=== PATIENT | male | born 1980 | race Caucasian/White ===

== ENCOUNTER → 2016-07-03 | Outpatient (REF) | payer OTHER ==
[~2016-07-03] MED LIST: ACET500C; AMIT25TA2; KAPIDEX; MELOPOW; NEUR100C; NEUR300C; SKEL800T5
[2016-07-03 16:12] LABS: % NORMAL FORMS 4 % (>=4); IMMOTILITY 77 %; NON PROGRESSIVE MOTILITY (c) 6 %; PROGRESSIVE MOTILITY (a) 17 % (>=32); TOTAL MOTILITY 23 % (>=40)
[2016-07-03 16:13] LABS: SPERM# 274.6 M/Ejac (33-46); TOTAL FUNCTIONAL 4.8 M/Ejac.; TOTAL PROGRESSIVE SPERM 45.4 M/Ejac.
== END ==
LOC: M LAB REF 15:23
PROVIDERS: ATTEND Urology
DX: N46.9 Male infertility, unspecified (principal)

== ENCOUNTER → 2016-07-04 | Outpatient (REF) | payer OTHER ==
[2016-07-04 14:18] LABS: LUTEINIZING HORMONE 5.5 mIU/mL (1.5-9.3)
[2016-07-04 14:19] LABS: FOLLICLE STIMULATING HORMONE 7.6 mIU/mL (1.4-18.1)
== END ==
LOC: M LABDRAW1 13:31
PROVIDERS: ATTEND Emergency Medicine
DX: N46.9 Male infertility, unspecified (principal)

== ENCOUNTER → 2016-09-03 | Outpatient (CLI) | payer OTHER ==
[~2016-09-03] MED LIST changes: +DEXI60CA PO; +HYDR12.55 PO; +LEVOTAB10 PO; +LOPR1TAB6 PO; +RANITAB PO; +UROCTAB3 PO; +clomid PO
--- NOTE | 2016-09-03 23:12 | ECGEPIP ---
Stationary ECG Study [facility] Test Date: 2016-09-03 Pat Name: BEENA JEFF Department: Room: - Gender: M Assistant Finance Manager: IZABELLA : 1980 Requested By: Ronny Samayoa Order Number: [id number] Reading MD: Douglas Martínez Measurements Intervals [place] Rate: 75 P: 8 NM: 169 QRS: 0 QRSD: 84 T: 7 QT: 374 QTc: 418 Interpretive Statements SINUS RHYTHM Poor R-wave progression. No prior ECG available for comparison at the time of interpretation. Electronically Signed On 09-03-2016 23:11:54 EDT by Douglas Martínez
== END ==
LOC: M EKG 16:23
PROVIDERS: ATTEND Internal Medicine
DX: I10 Essential (primary) hypertension (principal); N28.9 Disorder of kidney and ureter, unspecified

== ENCOUNTER → 2016-09-10 | Day surgery (SDC) | payer OTHER ==
[~2016-09-10] VITALS: Ht 198.1 cm; Wt 124.7 kg
[~2016-09-10] MED LIST changes: +DOXY100C; +GLYCOPYRROLATE INJ 0.2 MG/ML 2 ML VIAL As Ordered ONE; +HYDROmorphone HCL 1 MG/ML SYRINGE (J1170) IV PRN; +LABETALOL HCL 100 MG/20 ML VIAL As Ordered ONE; +LIDOCAINE 2% INJ 100 MG/5 ML SDV (FOR ANES.) As Ordered ONE; +LIDOCAINE W/EPINEPHRINE 1% 20ML VIAL As Ordered ONE; +LR 1,000 ML IV SCH; +METHYLENE BLUE 0.5% (5MG/ML) 10 ML AMP (PROVAYBLUE)(Q9968 PER 1MG) As Ordered ONE; +METOCLOPRAMIDE INJ 10MG/2ML VIAL (J2765) As Ordered ONE; +MIDAZOLAM INJ 2 MG/2 ML VIAL (J2250) As Ordered ONE; +NEOSTIGMINE 1MG/ML 5 ML SYRINGE (J2710) As Ordered ONE; +NORC10TA2 PO; +ONDANSETRON 4MG/2ML VIAL (J2405) As Ordered ONE; +ONDANSETRON 4MG/2ML VIAL (J2405) IV PRN; +OXYMETAZOLINE NASAL SPRAY (AFRIN) As Ordered ONE; +PERCOCET 5MG/325MG TAB PO PRN; +PROPOFOL 200 MG/20 ML VIAL As Ordered ONE; +ROCURONIUM BROMIDE 50 MG/5 ML VIAL As Ordered ONE; +dexameTHASONE 4 MG/ML 1ML VIAL (J1100) As Ordered ONE; +fentaNYL 100 MCG/2 ML INJECTION (J3010) As Ordered ONE; +fentaNYL 250 MCG/5 ML INJECTION (J3010) As Ordered ONE
[2016-09-10] MEDS: LR 1,000 ML IV SCH ×2 (08:25→09:52)
[2016-09-10] MEDS: fentaNYL 100 MCG/2 ML INJECTION (J3010) IV PRN ×2 (10:35→10:40)
[2016-09-10 11:45] VITALS: BP 128/76
--- NOTE | 2016-09-11 09:33 | RO ---
DATE OF PROCEDURE: 09/10/2016 PREOPERATIVE DIAGNOSES: Nasal septal deviation and chronic rhinitis. POSTOPERATIVE DIAGNOSES: Nasal septal deviation and chronic rhinitis. PROCEDURE: Septoplasty, partial reduction inferior turbinates. SURGEON: Dr. Hernandez Menjivar DONOR FLOOR TECHNICIAN: ANESTHESIA: General endotracheal. INDICATIONS: This is a 36-year-old who presents with a long history of nasal obstruction with a history of nasal trauma. DESCRIPTION OF PROCEDURE: Satisfactory general endotracheal anesthesia administered. A pharyngeal pack was placed. The nose was prepared for surgery by placing cotton-soaked pledgets with Afrin solution to the nasal cavity bilaterally. 1% Xylocaine with 1:100,000 epinephrine was injected into the nasal septum and inferior turbinates. A [place] incision was made on the left side of the nose. A mucoperichondrial flap and envelope was created on the left side of the nasal septum and carried down to the junction of the bony and cartilaginous septum. This was then with an elevator, and an envelope was then created on the right side of the septum. A Meenakshi scissors was used to make a cut high in the perpendicular plate in the midportion of the vomer, and a central segment of the bony septum was resected. Next, with the round knife on the Evi elevator, a strip of cartilage was resected from the floor of the nose, mobilizing the quadrilateral cartilage and creating a swinging door. Then, a central segment of cartilaginous septum was resected, preserving a 1 cm dorsal and caudal strut. Double-action rongeur was used to take down deflected portions of the perpendicular plate, as well. Finally, the maxillary crest spur was taken down after elevating mucoperiosteum off both sides of it with a chisel. A segment of the resected cartilage was morselized and placed back into the septal envelope. The incision was closed using an interrupted #5-0 chromic suture. Then, a #4-0 plain suture was placed in a [id number] fashion through the two leaves of mucoperichondrium to appose them. Hypotrophic turbinates were noted. They were medially infractured. A #15 blade was used to make an incision on the anterior tips of the turbinates. A mucoperiosteal tunnel created and the microdebrider was inserted into the tunnel and the turbinate bone was weakened with the microdebrider and the submucosa of the turbinate was partially thinned using the microdebrider. The turbinates were then outfractured and suction cautery was used to coagulate the posterior and inferior tips of the turbinates. The pharyngeal pack was removed. The throat was suctioned. The patient was then awakened, extubated, and sent to recovery in satisfactory condition. He will be discharged home on Tylox for pain and doxycycline 100 mg twice a day. He will be seen back in the office in 3 days.
== END | disposition home or self-care (01) ==
LOC: M SDC 07:45
PROVIDERS: ATTEND Specialist
DX: J34.2 Deviated nasal septum (principal); J31.0 Chronic rhinitis; I12.9 Hypertensive chronic kidney disease with stage 1 through stage 4 chronic kidney disease, or unspecified chronic kidney disease; K21.9 Gastro-esophageal reflux disease without esophagitis; Q44.6 Cystic disease of liver; Q61.2 Polycystic kidney, adult type; M54.2 Cervicalgia; R29.898 Other symptoms and signs involving the musculoskeletal system; G43.909 Migraine, unspecified, not intractable, without status migrainosus; G47.26 Circadian rhythm sleep disorder, shift work type; R06.83 Snoring; J32.9 Chronic sinusitis, unspecified; N20.0 Calculus of kidney; Z87.891 Personal history of nicotine dependence; Z88.6 Allergy status to analgesic agent; Z79.899 Other long term (current) drug therapy; Z87.81 Personal history of (healed) traumatic fracture

== ENCOUNTER 2016-09-14 12:48 | Emergency (ER) | payer OTHER ==
[~2016-09-14] VITALS: Ht 198.1 cm; Wt 127.0 kg
[~2016-09-14 12:48] MED LIST changes: -DOXY100C; -GLYCOPYRROLATE INJ 0.2 MG/ML 2 ML VIAL As Ordered ONE; -HYDROmorphone HCL 1 MG/ML SYRINGE (J1170) IV PRN; -LABETALOL HCL 100 MG/20 ML VIAL As Ordered ONE; -LIDOCAINE 2% INJ 100 MG/5 ML SDV (FOR ANES.) As Ordered ONE; -LIDOCAINE W/EPINEPHRINE 1% 20ML VIAL As Ordered ONE; -LR 1,000 ML IV SCH; -METHYLENE BLUE 0.5% (5MG/ML) 10 ML AMP (PROVAYBLUE)(Q9968 PER 1MG) As Ordered ONE; -METOCLOPRAMIDE INJ 10MG/2ML VIAL (J2765) As Ordered ONE; -MIDAZOLAM INJ 2 MG/2 ML VIAL (J2250) As Ordered ONE; -NEOSTIGMINE 1MG/ML 5 ML SYRINGE (J2710) As Ordered ONE; -NORC10TA2 PO; -ONDANSETRON 4MG/2ML VIAL (J2405) As Ordered ONE; -ONDANSETRON 4MG/2ML VIAL (J2405) IV PRN; -OXYMETAZOLINE NASAL SPRAY (AFRIN) As Ordered ONE; -PERCOCET 5MG/325MG TAB PO PRN; -PROPOFOL 200 MG/20 ML VIAL As Ordered ONE; -ROCURONIUM BROMIDE 50 MG/5 ML VIAL As Ordered ONE; -dexameTHASONE 4 MG/ML 1ML VIAL (J1100) As Ordered ONE; -fentaNYL 100 MCG/2 ML INJECTION (J3010) As Ordered ONE; -fentaNYL 250 MCG/5 ML INJECTION (J3010) As Ordered ONE
[2016-09-14] MEDS ORDERED: DOXY100C (13:01)
[2016-09-14] MEDS ORDERED: ONDANSETRON 4 MG ORAL DISINTEGRATING TAB (S0181) PO ONE (13:45)
[2016-09-14] MEDS ORDERED: ANEXSIA, NORCO 7.5MG/325MG TABLET(HYDROCODONE/APAP) PO ONE (13:45)
[2016-09-14] MEDS ORDERED: NORC10TA2 PO (14:32)
[2016-09-14 14:39] VITALS: BP 142/94
== END 2016-09-14 14:49 | disposition home or self-care (01) ==
LOC: M ED 14:04
DX: G89.18 Other acute postprocedural pain (principal)

== ENCOUNTER → 2016-10-26 | Outpatient (REF) | payer OTHER ==
[~2016-10-26] MED LIST changes: +DOXY100C; +NORC10TA2 PO
[2016-10-26 09:51] LABS: % NORMAL FORMS 30 % (>=4); IMMOTILITY 6 %; NON PROGRESSIVE MOTILITY (c) 16 %; PROGRESSIVE MOTILITY (a) 78 % (>=32); SPERM# 131.3 M/Ejac (33-46); TOTAL MOTILITY 94 % (>=40)
[2016-10-26 09:52] LABS: TOTAL FUNCTIONAL 52.5 M/Ejac.
== END ==
LOC: M LAB REF 09:27
PROVIDERS: ATTEND Obstetrics & Gynecology Reproductive Endocrinology
DX: N97.9 Female infertility, unspecified (principal)

== ENCOUNTER → 2017-03-04 | Outpatient (REF) | payer OTHER ==
[~2017-03-04] MED LIST changes: -DEXI60CA PO; +DEXI60CA2 PO; -NORC10TA2 PO; +NORC10TA21 PO
[2017-03-04 19:47] LABS: % NORMAL FORMS 9 % (>=4); IMMOTILITY 51 %; NON PROGRESSIVE MOTILITY (c) 11 %; PROGRESSIVE MOTILITY (a) 38 % (>=32); SPERM# 82.9 M/Ejac (>=39); TOTAL MOTILITY 49 % (>=40)
[2017-03-04 19:48] LABS: TOTAL FUNCTIONAL 6.6 M/Ejac.; TOTAL PROGRESSIVE SPERM 31.7 M/Ejac.
== END ==
LOC: M LAB REF 16:01
PROVIDERS: ATTEND Obstetrics & Gynecology Reproductive Endocrinology
DX: N46.9 Male infertility, unspecified (principal)

== ENCOUNTER → 2017-09-05 | Outpatient (CLI) | payer OTHER | LOC: M RAD 13:23 | DX: N18.2 Chronic kidney disease, stage 2 (mild) (principal); Q61.2 Polycystic kidney, adult type; N20.0 Calculus of kidney ==

== ENCOUNTER → 2017-12-23 | Outpatient (REF) | payer OTHER ==
[2017-12-23 10:02] LABS: SEMEN APPEARANCE OPAQUE (OPAQUE); SEMEN VISCOSITY LIQUID (LIQUID); SEMEN VOLUME 2.6 ml (4.0-5.0)
[2017-12-23 10:03] LABS: % NORMAL FORMS 20 % (>=4); IMMOTILITY 23 %; NON PROGRESSIVE MOTILITY (c) 8 %; PROGRESSIVE MOTILITY (a) 69 % (>=32); SPERM ABNORMAL FORMS WBC'S NOTED; SPERM CONCENTRATION 102.1 M/ml (>=15.0); SPERM# 265.5 M/Ejac (>=39); TOTAL FUNCTIONAL 71.9 M/Ejac.; TOTAL MOTILITY 77 % (>=40); TOTAL PROGRESSIVE SPERM 183.9 M/Ejac.; WBC CONCENTRATION >1 M/ml (<=1 M/ml)
== END ==
LOC: M LAB REF 09:49
DX: N46.9 Male infertility, unspecified (principal)

== ENCOUNTER → 2018-01-07 | Outpatient (CLI) | payer OTHER | LOC: M PAIN 10:15 | DX: M25.562 Pain in left knee (principal); G89.29 Other chronic pain; M79.2 Neuralgia and neuritis, unspecified; I10 Essential (primary) hypertension; K21.9 Gastro-esophageal reflux disease without esophagitis; Z79.899 Other long term (current) drug therapy; Z88.6 Allergy status to analgesic agent; Z88.8 Allergy status to other drugs, medicaments and biological substances; Z87.448 Personal history of other diseases of urinary system; Z87.891 Personal history of nicotine dependence | CPT/HCPCS: G0463 ==

== ENCOUNTER → 2018-01-16 | Outpatient (CLI) | payer OTHER | LOC: M RAD 09:22 | DX: M17.11 Unilateral primary osteoarthritis, right knee (principal); M25.561 Pain in right knee | CPT/HCPCS: 78315 ==

== ENCOUNTER → 2018-01-20 | Outpatient (CLI) | payer OTHER | LOC: M PAIN 15:45 | DX: G57.31 Lesion of lateral popliteal nerve, right lower limb (principal); K21.9 Gastro-esophageal reflux disease without esophagitis; I10 Essential (primary) hypertension; Z87.442 Personal history of urinary calculi; Z87.891 Personal history of nicotine dependence; Q61.3 Polycystic kidney, unspecified; Z88.6 Allergy status to analgesic agent; Z88.8 Allergy status to other drugs, medicaments and biological substances; Z79.899 Other long term (current) drug therapy | CPT/HCPCS: G0463 ==

== ENCOUNTER 2018-01-30 16:20 | Emergency (ER) | payer OTHER | END 2018-01-30 17:02 | disposition home or self-care (01) | LOC: M ED 16:20 | DX: R51 Headache (principal); T42.6X5A Adverse effect of other antiepileptic and sedative-hypnotic drugs, initial encounter; I10 Essential (primary) hypertension; G90.50 Complex regional pain syndrome I, unspecified; Q61.3 Polycystic kidney, unspecified; Z98.890 Other specified postprocedural states; Z88.8 Allergy status to other drugs, medicaments and biological substances; Z79.899 Other long term (current) drug therapy | CPT/HCPCS: 99282 ==

== ENCOUNTER 2018-02-02 18:47 | Inpatient (IN) | payer OTHER ==
[2018-02-02] MEDS: MORPHINE 4 MG/ML 1ML VIAL/SYRINGE (J2270) IV (19:45)
[2018-02-02 21:01] LABS: ABG HCO3 24.8 MEQ/L (22.0-26.0); ABG O2 SATURATION 94.8 % (95.0-99.0); ABG PARTIAL PRESSURE O2 71.8 mmHg (75.0-100.0); ABG STANDARD HCO3 25.3 MEQ/L (22.0-26.0); ABG TOTAL CO2 25.9 MEQ/L (22.0-29.0); ABG pH (ARTERIAL) 7.444 UNITS (7.350-7.450)
[2018-02-02 21:03] LABS: BASO # 0.1 10^3/uL (0.0-0.2); BASO % 0.6 % (0.0-1.0); EOS # 0.2 10^3/uL (0.0-0.50); EOS % 2.8 % (0.0-3.0); HEMATOCRIT 41.5 % (42.0-52.0); HEMOGLOBIN 14.3 g/dl (13.5-17.5); IMMATURE GRANULOCYTE % 0.4 % (0-3.0); LYMPH # 1.6 10^3/uL (1.5-4.5); LYMPH % 20.6 % (24.0-44.0); MEAN CORPUSCULAR HEMOGLOBIN 30.5 pg (27.0-33.0); MEAN CORPUSCULAR HGB CONC 34.5 g/dl (32.0-36.5); MEAN CORPUSCULAR VOLUME 88.5 fl (80.0-96.0); MONO # 0.6 10^3/uL (0.0-0.8); MONO % 7.2 % (0.0-5.0); NEUTROPHILS # 5.3 10^3/uL (1.8-7.7); NEUTROPHILS % 68.4 % (36.0-66.0); PLATELET COUNT, AUTOMATED 163 10^3/uL (150-450); RED BLOOD COUNT 4.69 10^6/uL (4.30-6.10); RED CELL DISTRIBUTION WIDTH 12.5 % (11.5-14.5); WHITE BLOOD COUNT 7.8 10^3/uL (4.0-10.0)
[2018-02-02 21:25] LABS: ANION GAP 9 MEQ/L (8-16); BLOOD UREA NITROGEN 14 MG/DL (7-18); CALCIUM LEVEL 8.7 MG/DL (8.5-10.1); CARBON DIOXIDE LEVEL 27 MEQ/L (21-32); CHLORIDE LEVEL 106 MEQ/L (98-107); CK-MB VALUE MASS < 1.0 NG/ML (<3.6); CPK CREATINE PHOSPHOKINASE 38 U/L (39-308); CREATININE FOR GFR 1.08 MG/DL (0.70-1.30); GLOMERULAR FILTRATION RATE > 60.0 (>60); GLUCOSE, FASTING 122 MG/DL (70-100); MB/CK RELATIVE INDEX 2.63 (< OR =4); POTASSIUM SERUM 4.3 MEQ/L (3.5-5.1); SODIUM LEVEL 142 MEQ/L (136-145); TROPONIN I < 0.02 NG/ML (< 0.10)
[2018-02-02 21:36] LABS: INR 0.95; PROTHROMBIN TIME 12.8 SECONDS (12.1-14.4)
[2018-02-02 21:37] LABS: PARTIAL THROMBOPLASTIN TIME 36.1 SECONDS (25.4-37.6)
[2018-02-02 21:58] LABS: D-DIMER QUANT 3595.4 ng/ml (<500)
[2018-02-02] MEDS: NS 1,000 ML IV (22:00)
[2018-02-02] MEDS ORDERED: ISOVUE-370 76% 100ML VIAL (Q9967) As Ordered (22:27)
[2018-02-02] MEDS: HEPARIN SOD (PORCINE) 5000 UNITS/ML VIAL IV (23:03)
[2018-02-02] MEDS: HEPARIN DRIP 25,000 UNITS in APPROPRIATE DILUENT 1 EA IV (23:04)
[2018-02-03] MEDS: HEPARIN DRIP 25,000 UNITS in APPROPRIATE DILUENT 1 EA IV ×2 (00:12→16:07)
[2018-02-03] MEDS: MAGNESIUM CHLORIDE 64 MG TABCR (SLO MAG) PO ×2 (01:14→21:15)
[2018-02-03] MEDS: METOPROLOL TART 50 MG TAB PO ×3 (01:18→21:16)
[2018-02-03] MEDS: LOSARTAN 50 MG TAB PO ×2 (01:18→21:15)
[2018-02-03] MEDS: aMILoride 5 MG TAB PO ×2 (01:18→21:15)
[2018-02-03 01:20] LABS: PARTIAL THROMBOPLASTIN TIME 88.6 SECONDS (25.4-37.6)
[2018-02-03] MEDS: MORPHINE 4 MG/ML 1ML VIAL/SYRINGE (J2270) IV (01:26)
[2018-02-03 05:42] LABS: HEMATOCRIT 38.5 % (42.0-52.0); HEMOGLOBIN 13.4 g/dl (13.5-17.5); MEAN CORPUSCULAR HEMOGLOBIN 30.4 pg (27.0-33.0); MEAN CORPUSCULAR HGB CONC 34.8 g/dl (32.0-36.5); MEAN CORPUSCULAR VOLUME 87.3 fl (80.0-96.0); PLATELET COUNT, AUTOMATED 172 10^3/uL (150-450); RED BLOOD COUNT 4.41 10^6/uL (4.30-6.10); RED CELL DISTRIBUTION WIDTH 12.5 % (11.5-14.5); WHITE BLOOD COUNT 8.3 10^3/uL (4.0-10.0)
[2018-02-03 06:16] LABS: ANION GAP 8 MEQ/L (8-16); BLOOD UREA NITROGEN 14 MG/DL (7-18); CALCIUM LEVEL 8.6 MG/DL (8.5-10.1); CARBON DIOXIDE LEVEL 25 MEQ/L (21-32); CHLORIDE LEVEL 105 MEQ/L (98-107); CREATININE FOR GFR 1.05 MG/DL (0.70-1.30); GLOMERULAR FILTRATION RATE > 60.0 (>60); GLUCOSE, FASTING 92 MG/DL (70-100); POTASSIUM SERUM 3.9 MEQ/L (3.5-5.1); SODIUM LEVEL 138 MEQ/L (136-145); TROPONIN I < 0.02 NG/ML (< 0.10)
[2018-02-03 06:57] LABS: PARTIAL THROMBOPLASTIN TIME 43.4 SECONDS (25.4-37.6)
[2018-02-03 07:25] LABS: INR 1.01; PROTHROMBIN TIME 13.4 SECONDS (12.1-14.4)
[2018-02-03] MEDS: PANTOPRAZOLE 40MG TAB (PROTONIX) PO (08:39)
[2018-02-03] MEDS: POTASSIUM CITRATE 1080 MG (10MEQ) TAB PO ×3 (08:39→21:16)
[2018-02-03] MEDS ORDERED: POTASSIUM CHLORIDE 10 MEQ SR TABLET PO (09:00)
[2018-02-03] MEDS: ACETAMINOPHEN TAB 650MG DOSE (2X325MG) PO (10:54)
[2018-02-03] MEDS ORDERED: MOM 30ML SUSPENSION UDC PO (11:45)
[2018-02-03] MEDS: PERCOCET 5MG/325MG TAB PO ×3 (12:20→21:16)
[2018-02-03 12:32] LABS: PARTIAL THROMBOPLASTIN TIME 55.1 SECONDS (25.4-37.6)
[2018-02-03 13:34] LABS: TROPONIN I < 0.02 NG/ML (< 0.10)
[2018-02-03] MEDS: HEPARIN SOD (PORCINE) 5000 UNITS/ML VIAL IV (13:57)
[2018-02-03] MEDS: WARFARIN SOD 5 MG TAB PO (17:29)
[2018-02-03 20:15] LABS: PARTIAL THROMBOPLASTIN TIME 71.9 SECONDS (25.4-37.6)
[2018-02-03] MEDS: SENOKOT S TAB PO (21:15)
[2018-02-03] MEDS: raNITIdine SYRUP 150 MG/10 ML UDC PO (21:15)
[2018-02-03] MEDS: LEVOCETIRIZINE HYDROCHLORIDE 5 MG PO (21:44)
[2018-02-04] MEDS: PERCOCET 5MG/325MG TAB PO ×4 (01:19→19:08)
[2018-02-04 02:22] LABS: PARTIAL THROMBOPLASTIN TIME 79.4 SECONDS (25.4-37.6)
[2018-02-04 05:59] LABS: HEMATOCRIT 39.6 % (42.0-52.0); MEAN CORPUSCULAR HEMOGLOBIN 30.6 pg (27.0-33.0); MEAN CORPUSCULAR HGB CONC 35.4 g/dl (32.0-36.5); MEAN CORPUSCULAR VOLUME 86.5 fl (80.0-96.0); PLATELET COUNT, AUTOMATED 164 10^3/uL (150-450); RED BLOOD COUNT 4.58 10^6/uL (4.30-6.10); RED CELL DISTRIBUTION WIDTH 12.4 % (11.5-14.5); WHITE BLOOD COUNT 6.6 10^3/uL (4.0-10.0)
[2018-02-04 06:11] LABS: INR 1.07
[2018-02-04] MEDS: HEPARIN DRIP 25,000 UNITS in APPROPRIATE DILUENT 1 EA IV ×2 (06:12→17:28)
[2018-02-04 06:17] LABS: ANION GAP 9 MEQ/L (8-16); BLOOD UREA NITROGEN 16 MG/DL (7-18); CALCIUM LEVEL 8.6 MG/DL (8.5-10.1); CARBON DIOXIDE LEVEL 25 MEQ/L (21-32); CHLORIDE LEVEL 105 MEQ/L (98-107); CREATININE FOR GFR 1.04 MG/DL (0.70-1.30); GLOMERULAR FILTRATION RATE > 60.0 (>60); GLUCOSE, FASTING 115 MG/DL (70-100); POTASSIUM SERUM 4.2 MEQ/L (3.5-5.1); SODIUM LEVEL 139 MEQ/L (136-145)
[2018-02-04] MEDS: METOPROLOL TART 50 MG TAB PO ×2 (08:11→21:23)
[2018-02-04] MEDS: POTASSIUM CITRATE 1080 MG (10MEQ) TAB PO ×3 (08:11→21:22)
[2018-02-04] MEDS: raNITIdine SYRUP 150 MG/10 ML UDC PO ×2 (08:11→21:23)
[2018-02-04] MEDS ORDERED: NALOXONE INJ 0.4 MG/1 ML VIAL (J2310) IV (12:00)
[2018-02-04] MEDS: PANTOPRAZOLE 40MG TAB (PROTONIX) PO (17:28)
[2018-02-04] MEDS: WARFARIN SOD 5 MG TAB PO (17:28)
[2018-02-04] MEDS: MORPHINE 4 MG/ML 1ML VIAL/SYRINGE (J2270) IV ×2 (17:29→21:25)
[2018-02-04 20:02] LABS: CK-MB VALUE MASS < 1.0 NG/ML (<3.6); CPK CREATINE PHOSPHOKINASE 46 U/L (39-308); MB/CK RELATIVE INDEX 2.17 (< OR =4); TROPONIN I < 0.02 NG/ML (< 0.10)
[2018-02-04] MEDS: LEVOCETIRIZINE HYDROCHLORIDE 5 MG PO (21:00)
[2018-02-04] MEDS: aMILoride 5 MG TAB PO (21:22)
[2018-02-04] MEDS: LOSARTAN 50 MG TAB PO (21:22)
[2018-02-04] MEDS: MAGNESIUM CHLORIDE 64 MG TABCR (SLO MAG) PO (21:24)
[2018-02-05 06:25] LABS: HEMATOCRIT 40.4 % (42.0-52.0); HEMOGLOBIN 14.3 g/dl (13.5-17.5); MEAN CORPUSCULAR HEMOGLOBIN 30.4 pg (27.0-33.0); MEAN CORPUSCULAR HGB CONC 35.4 g/dl (32.0-36.5); MEAN CORPUSCULAR VOLUME 85.8 fl (80.0-96.0); PLATELET COUNT, AUTOMATED 163 10^3/uL (150-450); RED BLOOD COUNT 4.71 10^6/uL (4.30-6.10); RED CELL DISTRIBUTION WIDTH 12.4 % (11.5-14.5); WHITE BLOOD COUNT 6.4 10^3/uL (4.0-10.0)
[2018-02-05 06:26] LABS: ANION GAP 9 MEQ/L (8-16); BLOOD UREA NITROGEN 17 MG/DL (7-18); CALCIUM LEVEL 8.6 MG/DL (8.5-10.1); CARBON DIOXIDE LEVEL 26 MEQ/L (21-32); CHLORIDE LEVEL 106 MEQ/L (98-107); CREATININE FOR GFR 1.07 MG/DL (0.70-1.30); GLOMERULAR FILTRATION RATE > 60.0 (>60); GLUCOSE, FASTING 108 MG/DL (70-100); POTASSIUM SERUM 4.3 MEQ/L (3.5-5.1); SODIUM LEVEL 141 MEQ/L (136-145)
[2018-02-05 06:38] LABS: INR 1.25; PROTHROMBIN TIME 15.9 SECONDS (12.1-14.4)
[2018-02-05 06:40] LABS: PARTIAL THROMBOPLASTIN TIME 94.9 SECONDS (25.4-37.6)
[2018-02-05] MEDS: METOPROLOL TART 50 MG TAB PO ×2 (08:29→21:17)
[2018-02-05] MEDS: POTASSIUM CITRATE 1080 MG (10MEQ) TAB PO ×3 (08:29→21:20)
[2018-02-05] MEDS: raNITIdine SYRUP 150 MG/10 ML UDC PO ×2 (08:30→21:21)
[2018-02-05] MEDS: HEPARIN DRIP 25,000 UNITS in APPROPRIATE DILUENT 1 EA IV ×2 (08:32→23:58)
[2018-02-05] MEDS: PERCOCET 5MG/325MG TAB PO ×3 (09:51→21:21)
[2018-02-05] MEDS: MORPHINE 4 MG/ML 1ML VIAL/SYRINGE (J2270) IV ×3 (11:40→23:06)
[2018-02-05 13:46] LABS: CK-MB VALUE MASS < 1.0 NG/ML (<3.6); CPK CREATINE PHOSPHOKINASE 37 U/L (39-308); TROPONIN I < 0.02 NG/ML (< 0.10)
[2018-02-05] MEDS ORDERED: ISOVUE-370 76% 100ML VIAL (Q9967) As Ordered (13:53)
[2018-02-05] MEDS: GI COCKTAIL 50ML BTL(HYOSCYAMINE/MAALOX/LIDOCAINE VISCOUS)(1:3:1) PO (14:15)
[2018-02-05] MEDS: WARFARIN SOD 5 MG TAB PO (16:10)
[2018-02-05] MEDS: PANTOPRAZOLE 40MG TAB (PROTONIX) PO ×2 (16:11→21:19)
[2018-02-05] MEDS: SUCRALFATE SUSP 1GM/10ML UD PO ×2 (18:02→21:16)
[2018-02-05] MEDS ORDERED: GI COCKTAIL 50ML BTL(HYOSCYAMINE/MAALOX/LIDOCAINE VISCOUS)(1:3:1) PO (20:00)
[2018-02-05 20:59] LABS: CK-MB VALUE MASS < 1.0 NG/ML (<3.6); CPK CREATINE PHOSPHOKINASE 47 U/L (39-308); MB/CK RELATIVE INDEX 2.12 (< OR =4); TROPONIN I < 0.02 NG/ML (< 0.10)
[2018-02-05 21:15] LABS: INR 1.51; PROTHROMBIN TIME 18.4 SECONDS (12.1-14.4)
[2018-02-05 21:16] LABS: PARTIAL THROMBOPLASTIN TIME 79.3 SECONDS (25.4-37.6)
[2018-02-05] MEDS: LOSARTAN 50 MG TAB PO (21:17)
[2018-02-05] MEDS: aMILoride 5 MG TAB PO (21:18)
[2018-02-05] MEDS: LEVOCETIRIZINE HYDROCHLORIDE 5 MG PO (21:18)
[2018-02-05] MEDS: MAGNESIUM CHLORIDE 64 MG TABCR (SLO MAG) PO (21:19)
[2018-02-06] MEDS: NS 1,000 ML IV (00:10)
[2018-02-06 02:14] LABS: INR 1.91; PROTHROMBIN TIME 22.2 SECONDS (12.1-14.4)
[2018-02-06 02:16] LABS: PARTIAL THROMBOPLASTIN TIME 96.8 SECONDS (25.4-37.6)
[2018-02-06 08:29] LABS: HEMATOCRIT 42.4 % (42.0-52.0); HEMOGLOBIN 14.8 g/dl (13.5-17.5); MEAN CORPUSCULAR HEMOGLOBIN 30.5 pg (27.0-33.0); MEAN CORPUSCULAR HGB CONC 34.9 g/dl (32.0-36.5); MEAN CORPUSCULAR VOLUME 87.4 fl (80.0-96.0); PLATELET COUNT, AUTOMATED 166 10^3/uL (150-450); RED BLOOD COUNT 4.85 10^6/uL (4.30-6.10); RED CELL DISTRIBUTION WIDTH 12.3 % (11.5-14.5); WHITE BLOOD COUNT 6.1 10^3/uL (4.0-10.0)
[2018-02-06 08:41] LABS: INR 2.26; PROTHROMBIN TIME 25.4 SECONDS (12.1-14.4)
[2018-02-06 08:45] LABS: PARTIAL THROMBOPLASTIN TIME 133.9 SECONDS (25.4-37.6)
[2018-02-06 08:55] LABS: ANION GAP 9 MEQ/L (8-16); BLOOD UREA NITROGEN 16 MG/DL (7-18); CALCIUM LEVEL 8.7 MG/DL (8.5-10.1); CARBON DIOXIDE LEVEL 26 MEQ/L (21-32); CHLORIDE LEVEL 105 MEQ/L (98-107); CK-MB VALUE MASS < 1.0 NG/ML (<3.6); CPK CREATINE PHOSPHOKINASE 42 U/L (39-308); CREATININE FOR GFR 1.16 MG/DL (0.70-1.30); GLOMERULAR FILTRATION RATE > 60.0 (>60); GLUCOSE, FASTING 110 MG/DL (70-100); MB/CK RELATIVE INDEX 2.38 (< OR =4); POTASSIUM SERUM 4.4 MEQ/L (3.5-5.1); SODIUM LEVEL 140 MEQ/L (136-145); TROPONIN I < 0.02 NG/ML (< 0.10)
[2018-02-06] MEDS: raNITIdine SYRUP 150 MG/10 ML UDC PO ×2 (08:56→20:34)
[2018-02-06] MEDS: SUCRALFATE SUSP 1GM/10ML UD PO ×4 (08:56→20:31)
[2018-02-06] MEDS: POTASSIUM CITRATE 1080 MG (10MEQ) TAB PO ×3 (08:57→20:34)
[2018-02-06] MEDS: METOPROLOL TART 50 MG TAB PO ×2 (08:57→20:32)
[2018-02-06] MEDS: PERCOCET 5MG/325MG TAB PO ×3 (08:57→20:37)
[2018-02-06] MEDS: PANTOPRAZOLE 40MG TAB (PROTONIX) PO ×2 (08:57→20:33)
[2018-02-06] MEDS: MORPHINE 4 MG/ML 1ML VIAL/SYRINGE (J2270) IV ×3 (10:49→22:36)
[2018-02-06 14:46] LABS: PROTHROMBIN TIME 26.6 SECONDS (12.1-14.4)
[2018-02-06 14:47] LABS: PARTIAL THROMBOPLASTIN TIME 80.8 SECONDS (25.4-37.6)
[2018-02-06] MEDS: WARFARIN SOD 5 MG TAB PO (16:23)
[2018-02-06] MEDS: HEPARIN DRIP 25,000 UNITS in APPROPRIATE DILUENT 1 EA IV (16:31)
[2018-02-06] MEDS: LOSARTAN 50 MG TAB PO (20:32)
[2018-02-06] MEDS: LEVOCETIRIZINE HYDROCHLORIDE 5 MG PO (20:33)
[2018-02-06] MEDS: aMILoride 5 MG TAB PO (20:33)
[2018-02-06] MEDS: MAGNESIUM CHLORIDE 64 MG TABCR (SLO MAG) PO (20:34)
[2018-02-06 20:48] LABS: INR 2.21; PROTHROMBIN TIME 24.9 SECONDS (12.1-14.4)
[2018-02-06 20:49] LABS: PARTIAL THROMBOPLASTIN TIME 69.6 SECONDS (25.4-37.6)
[2018-02-07 05:12] LABS: HEMATOCRIT 41.4 % (42.0-52.0); HEMOGLOBIN 14.6 g/dl (13.5-17.5); MEAN CORPUSCULAR HEMOGLOBIN 30.8 pg (27.0-33.0); MEAN CORPUSCULAR HGB CONC 35.3 g/dl (32.0-36.5); MEAN CORPUSCULAR VOLUME 87.3 fl (80.0-96.0); PLATELET COUNT, AUTOMATED 171 10^3/uL (150-450); RED BLOOD COUNT 4.74 10^6/uL (4.30-6.10); RED CELL DISTRIBUTION WIDTH 12.3 % (11.5-14.5); WHITE BLOOD COUNT 6.2 10^3/uL (4.0-10.0)
[2018-02-07] MEDS: MORPHINE 4 MG/ML 1ML VIAL/SYRINGE (J2270) IV ×3 (05:14→20:56)
[2018-02-07 05:25] LABS: INR 2.68; PROTHROMBIN TIME 29.1 SECONDS (12.1-14.4)
[2018-02-07 05:29] LABS: ANION GAP 8 MEQ/L (8-16); BLOOD UREA NITROGEN 16 MG/DL (7-18); CALCIUM LEVEL 8.9 MG/DL (8.5-10.1); CARBON DIOXIDE LEVEL 25 MEQ/L (21-32); CHLORIDE LEVEL 106 MEQ/L (98-107); GLOMERULAR FILTRATION RATE > 60.0 (>60); GLUCOSE, FASTING 108 MG/DL (70-100); POTASSIUM SERUM 4.5 MEQ/L (3.5-5.1); SODIUM LEVEL 139 MEQ/L (136-145)
[2018-02-07] MEDS: SUCRALFATE SUSP 1GM/10ML UD PO ×4 (08:31→20:59)
[2018-02-07] MEDS: PERCOCET 5MG/325MG TAB PO ×4 (08:31→23:14)
[2018-02-07] MEDS: PANTOPRAZOLE 40MG TAB (PROTONIX) PO ×2 (08:31→20:58)
[2018-02-07] MEDS: raNITIdine SYRUP 150 MG/10 ML UDC PO ×2 (08:31→20:59)
[2018-02-07] MEDS: POTASSIUM CITRATE 1080 MG (10MEQ) TAB PO ×3 (08:32→20:57)
[2018-02-07] MEDS: METOPROLOL TART 50 MG TAB PO ×2 (08:32→20:58)
[2018-02-07] MEDS: HEPARIN DRIP 25,000 UNITS in APPROPRIATE DILUENT 1 EA IV ×2 (11:13→15:37)
[2018-02-07 11:37] LABS: INR 2.74; PROTHROMBIN TIME 29.6 SECONDS (12.1-14.4)
[2018-02-07] MEDS: BUPIVACAINE HCL 0.5% 30 ML VIAL As Ordered (14:20)
[2018-02-07] MEDS: HEPARIN SOD (PORCINE) 5000 UNITS/ML VIAL As Ordered (14:20)
[2018-02-07] MEDS: LIDOCAINE 1% SDV INJ 30 ML VIAL As Ordered (14:20)
[2018-02-07 15:28] LABS: INR 2.85; PROTHROMBIN TIME 30.6 SECONDS (12.1-14.4)
[2018-02-07] MEDS: ALTEPLASE RECOMBINANT 25 MG in NS 225 ML IV (15:33)
[2018-02-07] MEDS: ALTEPLASE RECOMBINANT 10 MG in APPROPRIATE DILUENT 1 EA IV (15:34)
[2018-02-07 16:50] LABS: FIBRINOGEN 326 MG/DL (221-452)
[2018-02-07] MEDS ORDERED: WARFARIN SOD 5 MG TAB PO (17:00)
[2018-02-07] MEDS: LOSARTAN 50 MG TAB PO (20:57)
[2018-02-07] MEDS: aMILoride 5 MG TAB PO (20:57)
[2018-02-07] MEDS: MAGNESIUM CHLORIDE 64 MG TABCR (SLO MAG) PO (20:58)
[2018-02-07] MEDS: LEVOCETIRIZINE HYDROCHLORIDE 5 MG PO (20:59)
[2018-02-07 22:23] LABS: HEMATOCRIT 42.9 % (42.0-52.0)
[2018-02-07 22:40] LABS: FIBRINOGEN 300 MG/DL (221-452)
[2018-02-07 22:58] LABS: PARTIAL THROMBOPLASTIN TIME 62.8 SECONDS (25.4-37.6)
[2018-02-08] MEDS: PERCOCET 5MG/325MG TAB PO ×3 (04:03→17:37)
[2018-02-08 04:35] LABS: HEMATOCRIT 41.2 % (42.0-52.0); HEMOGLOBIN 14.6 g/dl (13.5-17.5); MEAN CORPUSCULAR HEMOGLOBIN 30.6 pg (27.0-33.0); MEAN CORPUSCULAR HGB CONC 35.4 g/dl (32.0-36.5); MEAN CORPUSCULAR VOLUME 86.4 fl (80.0-96.0); PLATELET COUNT, AUTOMATED 165 10^3/uL (150-450); RED BLOOD COUNT 4.77 10^6/uL (4.30-6.10); RED CELL DISTRIBUTION WIDTH 12.5 % (11.5-14.5)
[2018-02-08 04:46] LABS: INR 2.94; PROTHROMBIN TIME 31.3 SECONDS (12.1-14.4)
[2018-02-08 04:47] LABS: FIBRINOGEN 299 MG/DL (221-452)
[2018-02-08 04:48] LABS: ANION GAP 10 MEQ/L (8-16); BLOOD UREA NITROGEN 19 MG/DL (7-18); CALCIUM LEVEL 8.7 MG/DL (8.5-10.1); CARBON DIOXIDE LEVEL 26 MEQ/L (21-32); CHLORIDE LEVEL 104 MEQ/L (98-107); CREATININE FOR GFR 1.11 MG/DL (0.70-1.30); GLOMERULAR FILTRATION RATE > 60.0 (>60); GLUCOSE, FASTING 112 MG/DL (70-100); PARTIAL THROMBOPLASTIN TIME 79.5 SECONDS (25.4-37.6); POTASSIUM SERUM 4.6 MEQ/L (3.5-5.1); SODIUM LEVEL 140 MEQ/L (136-145)
[2018-02-08] MEDS: MORPHINE 4 MG/ML 1ML VIAL/SYRINGE (J2270) IV ×3 (08:01→22:05)
[2018-02-08] MEDS: SUCRALFATE SUSP 1GM/10ML UD PO ×4 (08:02→20:25)
[2018-02-08] MEDS: raNITIdine SYRUP 150 MG/10 ML UDC PO ×2 (09:00→20:26)
[2018-02-08] MEDS: HEPARIN DRIP 25,000 UNITS in APPROPRIATE DILUENT 1 EA IV (09:21)
[2018-02-08] MEDS: PANTOPRAZOLE 40MG TAB (PROTONIX) PO ×2 (09:23→20:25)
[2018-02-08] MEDS: METOPROLOL TART 50 MG TAB PO ×2 (09:23→20:25)
[2018-02-08] MEDS: POTASSIUM CITRATE 1080 MG (10MEQ) TAB PO ×3 (09:23→20:24)
[2018-02-08 10:20] LABS: HEMATOCRIT 43.7 % (42.0-52.0); HEMOGLOBIN 15.2 g/dl (13.5-17.5)
[2018-02-08 10:50] LABS: PARTIAL THROMBOPLASTIN TIME 82.3 SECONDS (25.4-37.6)
[2018-02-08 10:54] LABS: FIBRINOGEN 317 MG/DL (221-452)
[2018-02-08] MEDS: PHYTONADIONE 5 MG TAB PO (11:44)
[2018-02-08] MEDS: ALTEPLASE RECOMBINANT 25 MG in NS 225 ML IV (15:29)
[2018-02-08 15:50] LABS: HEMATOCRIT 42.9 % (42.0-52.0); HEMOGLOBIN 15.1 g/dl (13.5-17.5)
[2018-02-08 16:01] LABS: FIBRINOGEN 334 MG/DL (221-452)
[2018-02-08 17:00] LABS: INR 2.23; PROTHROMBIN TIME 25.1 SECONDS (12.1-14.4)
[2018-02-08] MEDS: aMILoride 5 MG TAB PO (20:24)
[2018-02-08] MEDS: LOSARTAN 50 MG TAB PO (20:25)
[2018-02-08] MEDS: LEVOCETIRIZINE HYDROCHLORIDE 5 MG PO (20:26)
[2018-02-08] MEDS: MAGNESIUM CHLORIDE 64 MG TABCR (SLO MAG) PO (20:26)
[2018-02-08 22:25] LABS: HEMATOCRIT 41.9 % (42.0-52.0); HEMOGLOBIN 14.8 g/dl (13.5-17.5)
[2018-02-08 22:37] LABS: FIBRINOGEN 332 MG/DL (221-452)
[2018-02-08 22:38] LABS: PARTIAL THROMBOPLASTIN TIME 60.1 SECONDS (25.4-37.6)
[2018-02-09 04:13] LABS: HEMATOCRIT 39.4 % (42.0-52.0); MEAN CORPUSCULAR HEMOGLOBIN 30.8 pg (27.0-33.0); MEAN CORPUSCULAR HGB CONC 35.5 g/dl (32.0-36.5); MEAN CORPUSCULAR VOLUME 86.6 fl (80.0-96.0); PLATELET COUNT, AUTOMATED 148 10^3/uL (150-450); RED BLOOD COUNT 4.55 10^6/uL (4.30-6.10); RED CELL DISTRIBUTION WIDTH 12.4 % (11.5-14.5); WHITE BLOOD COUNT 6.7 10^3/uL (4.0-10.0)
[2018-02-09 04:31] LABS: ANION GAP 7 MEQ/L (8-16); BLOOD UREA NITROGEN 18 MG/DL (7-18); CALCIUM LEVEL 8.4 MG/DL (8.5-10.1); CARBON DIOXIDE LEVEL 28 MEQ/L (21-32); CHLORIDE LEVEL 104 MEQ/L (98-107); CREATININE FOR GFR 1.21 MG/DL (0.70-1.30); GLOMERULAR FILTRATION RATE > 60.0 (>60); GLUCOSE, FASTING 139 MG/DL (70-100); POTASSIUM SERUM 4.5 MEQ/L (3.5-5.1); SODIUM LEVEL 139 MEQ/L (136-145)
[2018-02-09 04:35] LABS: FIBRINOGEN 313 MG/DL (221-452); PARTIAL THROMBOPLASTIN TIME 60.6 SECONDS (25.4-37.6)
[2018-02-09 08:33] LABS: PROTHROMBIN TIME 20.3 SECONDS (12.1-14.4)
[2018-02-09] MEDS: raNITIdine SYRUP 150 MG/10 ML UDC PO ×2 (08:35→20:41)
[2018-02-09] MEDS: SUCRALFATE SUSP 1GM/10ML UD PO ×4 (08:36→20:44)
[2018-02-09] MEDS: PANTOPRAZOLE 40MG TAB (PROTONIX) PO ×2 (08:36→20:43)
[2018-02-09] MEDS: POTASSIUM CITRATE 1080 MG (10MEQ) TAB PO ×3 (08:36→20:43)
[2018-02-09] MEDS: METOPROLOL TART 50 MG TAB PO ×2 (08:36→20:44)
[2018-02-09] MEDS: PERCOCET 5MG/325MG TAB PO ×3 (08:45→20:43)
[2018-02-09] MEDS: HEPARIN DRIP 25,000 UNITS in APPROPRIATE DILUENT 1 EA IV (08:49)
[2018-02-09 10:14] LABS: HEMATOCRIT 41.4 % (42.0-52.0); HEMOGLOBIN 14.7 g/dl (13.5-17.5)
[2018-02-09 10:27] LABS: FIBRINOGEN 341 MG/DL (221-452); PARTIAL THROMBOPLASTIN TIME 63.6 SECONDS (25.4-37.6)
[2018-02-09] MEDS: MORPHINE 4 MG/ML 1ML VIAL/SYRINGE (J2270) IV ×3 (12:24→22:10)
[2018-02-09] MEDS: ALTEPLASE RECOMBINANT 25 MG in NS 225 ML IV (16:22)
[2018-02-09 16:24] LABS: HEMOGLOBIN 14.9 g/dl (13.5-17.5)
[2018-02-09 16:41] LABS: FIBRINOGEN 323 MG/DL (221-452)
[2018-02-09] MEDS: aMILoride 5 MG TAB PO (20:41)
[2018-02-09] MEDS: MAGNESIUM CHLORIDE 64 MG TABCR (SLO MAG) PO (20:43)
[2018-02-09] MEDS: LEVOCETIRIZINE HYDROCHLORIDE 5 MG PO (20:44)
[2018-02-09] MEDS: LOSARTAN 50 MG TAB PO (20:45)
[2018-02-09 22:17] LABS: HEMATOCRIT 39.3 % (42.0-52.0); HEMOGLOBIN 13.9 g/dl (13.5-17.5)
[2018-02-09 22:37] LABS: FIBRINOGEN 306 MG/DL (221-452)
[2018-02-09 22:38] LABS: PARTIAL THROMBOPLASTIN TIME 42.1 SECONDS (25.4-37.6)
[2018-02-10 00:07] LABS: ANTINUCLEAR ANTIBODIES DIRECT Negative (Negative)
[2018-02-10 04:13] LABS: HEMATOCRIT 37.7 % (42.0-52.0); HEMOGLOBIN 13.2 g/dl (13.5-17.5); MEAN CORPUSCULAR VOLUME 88.5 fl (80.0-96.0); PLATELET COUNT, AUTOMATED 136 10^3/uL (150-450); RED BLOOD COUNT 4.26 10^6/uL (4.30-6.10); RED CELL DISTRIBUTION WIDTH 12.4 % (11.5-14.5)
[2018-02-10] MEDS: MORPHINE 4 MG/ML 1ML VIAL/SYRINGE (J2270) IV ×3 (04:13→20:33)
[2018-02-10 04:24] LABS: INR 1.26
[2018-02-10 04:25] LABS: FIBRINOGEN 270 MG/DL (221-452)
[2018-02-10 05:01] LABS: ALBUMIN 3.4 GM/DL (3.2-5.2); ALKALINE PHOSPHATASE 60 U/L (45-117); ALT/SGPT 50 U/L (12-78); ANION GAP 9 MEQ/L (8-16); AST/SGOT 25 U/L (7-37); BILIRUBIN,TOTAL 0.3 MG/DL (0.2-1.0); BLOOD UREA NITROGEN 16 MG/DL (7-18); CALCIUM LEVEL 8.3 MG/DL (8.5-10.1); CARBON DIOXIDE LEVEL 26 MEQ/L (21-32); CHLORIDE LEVEL 106 MEQ/L (98-107); CREATININE FOR GFR 1.12 MG/DL (0.70-1.30); GLOMERULAR FILTRATION RATE > 60.0 (>60); GLUCOSE, FASTING 120 MG/DL (70-100); POTASSIUM SERUM 4.4 MEQ/L (3.5-5.1); SODIUM LEVEL 141 MEQ/L (136-145); TOTAL PROTEIN 6.2 GM/DL (6.4-8.2)
[2018-02-10 05:12] LABS: ALBUMIN/GLOBULIN RATIO 1.21 (1.00-1.93)
[2018-02-10] MEDS: DOCUSATE SODIUM 100 MG CAP PO ×2 (09:00→20:28)
[2018-02-10] MEDS: SUCRALFATE SUSP 1GM/10ML UD PO ×4 (09:05→20:27)
[2018-02-10] MEDS: PANTOPRAZOLE 40MG TAB (PROTONIX) PO ×2 (09:05→20:26)
[2018-02-10] MEDS: POTASSIUM CITRATE 1080 MG (10MEQ) TAB PO ×3 (09:05→20:27)
[2018-02-10] MEDS: METOPROLOL TART 50 MG TAB PO ×2 (09:05→20:26)
[2018-02-10] MEDS: raNITIdine SYRUP 150 MG/10 ML UDC PO ×2 (09:05→20:27)
[2018-02-10] MEDS: HEPARIN DRIP 25,000 UNITS in APPROPRIATE DILUENT 1 EA IV (09:08)
[2018-02-10] MEDS: PERCOCET 5MG/325MG TAB PO ×4 (09:50→23:43)
[2018-02-10 10:35] LABS: HEMOGLOBIN 14.2 g/dl (13.5-17.5)
[2018-02-10 11:00] LABS: FIBRINOGEN 290 MG/DL (221-452)
[2018-02-10 11:00] LABS: PARTIAL THROMBOPLASTIN TIME 43.1 SECONDS (25.4-37.6)
[2018-02-10 11:12] LABS: DRVV SCREEN 50.5 SEC
[2018-02-10 11:13] LABS: PTT LUPUS TYPE ANTICOAG SCREEN 1.3 (0-1.2)
[2018-02-10 11:21] LABS: DRVV CONFIRM 33.2 SEC; LUPUS CONFIRM RATIO 0.9
[2018-02-10 11:22] LABS: NORMALIZED RATIO 1.44 (0.00-1.20)
[2018-02-10 16:42] LABS: HEMATOCRIT 37.7 % (42.0-52.0); HEMOGLOBIN 13.3 g/dl (13.5-17.5)
[2018-02-10 16:54] LABS: FIBRINOGEN 271 MG/DL (221-452)
[2018-02-10 16:54] LABS: PARTIAL THROMBOPLASTIN TIME 37.7 SECONDS (25.4-37.6)
[2018-02-10] MEDS: HEPARIN SOD (PORCINE) 5000 UNITS/ML VIAL IV (17:45)
[2018-02-10] MEDS ORDERED: GASTROGRAFIN SOLUTION 30ML PO (18:00)
[2018-02-10] MEDS: LOSARTAN 50 MG TAB PO (20:26)
[2018-02-10] MEDS: MAGNESIUM CHLORIDE 64 MG TABCR (SLO MAG) PO (20:27)
[2018-02-10] MEDS: aMILoride 5 MG TAB PO (20:27)
[2018-02-10] MEDS: LEVOCETIRIZINE HYDROCHLORIDE 5 MG PO (20:27)
[2018-02-11] MEDS: HEPARIN SOD (PORCINE) 5000 UNITS/ML VIAL IV ×2 (00:45→13:08)
[2018-02-11] MEDS: HEPARIN DRIP 25,000 UNITS in APPROPRIATE DILUENT 1 EA IV ×2 (00:48→22:25)
[2018-02-11] MEDS: PERCOCET 5MG/325MG TAB PO ×4 (00:48→20:46)
[2018-02-11 07:13] LABS: HEMATOCRIT 36.8 % (42.0-52.0); HEMOGLOBIN 12.7 g/dl (13.5-17.5); MEAN CORPUSCULAR HEMOGLOBIN 30.8 pg (27.0-33.0); MEAN CORPUSCULAR HGB CONC 34.5 g/dl (32.0-36.5); MEAN CORPUSCULAR VOLUME 89.1 fl (80.0-96.0); PLATELET COUNT, AUTOMATED 133 10^3/uL (150-450); RED BLOOD COUNT 4.13 10^6/uL (4.30-6.10); RED CELL DISTRIBUTION WIDTH 12.5 % (11.5-14.5); WHITE BLOOD COUNT 5.9 10^3/uL (4.0-10.0)
[2018-02-11 07:24] LABS: INR 1.11; PROTHROMBIN TIME 14.5 SECONDS (12.1-14.4)
[2018-02-11 07:36] LABS: ALBUMIN 3.3 GM/DL (3.2-5.2); ALBUMIN/GLOBULIN RATIO 1.14 (1.00-1.93); ALKALINE PHOSPHATASE 53 U/L (45-117); ALT/SGPT 43 U/L (12-78); ANION GAP 6 MEQ/L (8-16); AST/SGOT 21 U/L (7-37); BILIRUBIN,TOTAL 0.3 MG/DL (0.2-1.0); BLOOD UREA NITROGEN 16 MG/DL (7-18); CALCIUM LEVEL 8.5 MG/DL (8.5-10.1); CARBON DIOXIDE LEVEL 27 MEQ/L (21-32); CHLORIDE LEVEL 106 MEQ/L (98-107); CREATININE FOR GFR 1.04 MG/DL (0.70-1.30); GLOMERULAR FILTRATION RATE > 60.0 (>60); GLUCOSE, FASTING 106 MG/DL (70-100); POTASSIUM SERUM 4.6 MEQ/L (3.5-5.1); SODIUM LEVEL 139 MEQ/L (136-145); TOTAL PROTEIN 6.2 GM/DL (6.4-8.2)
[2018-02-11] MEDS: raNITIdine SYRUP 150 MG/10 ML UDC PO ×2 (08:18→20:47)
[2018-02-11] MEDS: SUCRALFATE SUSP 1GM/10ML UD PO ×4 (08:18→20:47)
[2018-02-11] MEDS: METOPROLOL TART 50 MG TAB PO ×2 (08:18→20:49)
[2018-02-11] MEDS: POTASSIUM CITRATE 1080 MG (10MEQ) TAB PO ×3 (08:19→20:46)
[2018-02-11] MEDS: PANTOPRAZOLE 40MG TAB (PROTONIX) PO ×2 (08:19→20:50)
[2018-02-11] MEDS: DOCUSATE SODIUM 100 MG CAP PO ×2 (08:23→20:50)
[2018-02-11 08:44] LABS: PARTIAL THROMBOPLASTIN TIME 89.7 SECONDS (25.4-37.6)
[2018-02-11] MEDS: MORPHINE 4 MG/ML 1ML VIAL/SYRINGE (J2270) IV (11:03)
[2018-02-11] MEDS: WARFARIN SOD 5 MG TAB PO (16:45)
[2018-02-11] MEDS ORDERED: WARFARIN SOD 5 MG TAB PO (17:00)
[2018-02-11 19:23] LABS: PARTIAL THROMBOPLASTIN TIME 80.4 SECONDS (25.4-37.6)
[2018-02-11] MEDS: aMILoride 5 MG TAB PO (20:46)
[2018-02-11] MEDS: LOSARTAN 50 MG TAB PO (20:49)
[2018-02-11] MEDS: MAGNESIUM CHLORIDE 64 MG TABCR (SLO MAG) PO (20:50)
[2018-02-11] MEDS: LEVOCETIRIZINE HYDROCHLORIDE 5 MG PO (20:51)
[2018-02-12 01:20] LABS: PARTIAL THROMBOPLASTIN TIME 69.8 SECONDS (25.4-37.6)
[2018-02-12] MEDS: PERCOCET 5MG/325MG TAB PO ×4 (02:15→22:10)
[2018-02-12 06:48] LABS: HEMATOCRIT 36.7 % (42.0-52.0); HEMOGLOBIN 12.7 g/dl (13.5-17.5); MEAN CORPUSCULAR HEMOGLOBIN 30.9 pg (27.0-33.0); MEAN CORPUSCULAR HGB CONC 34.6 g/dl (32.0-36.5); MEAN CORPUSCULAR VOLUME 89.3 fl (80.0-96.0); PLATELET COUNT, AUTOMATED 137 10^3/uL (150-450); RED BLOOD COUNT 4.11 10^6/uL (4.30-6.10); RED CELL DISTRIBUTION WIDTH 12.4 % (11.5-14.5)
[2018-02-12 06:59] LABS: INR 1.08; PROTHROMBIN TIME 14.1 SECONDS (12.1-14.4)
[2018-02-12 07:46] LABS: ALBUMIN 3.5 GM/DL (3.2-5.2); ALBUMIN/GLOBULIN RATIO 1.13 (1.00-1.93); ALKALINE PHOSPHATASE 54 U/L (45-117); ALT/SGPT 42 U/L (12-78); ANION GAP 5 MEQ/L (8-16); AST/SGOT 23 U/L (7-37); BILIRUBIN,TOTAL 0.3 MG/DL (0.2-1.0); BLOOD UREA NITROGEN 16 MG/DL (7-18); CALCIUM LEVEL 8.6 MG/DL (8.5-10.1); CARBON DIOXIDE LEVEL 29 MEQ/L (21-32); CHLORIDE LEVEL 105 MEQ/L (98-107); CREATININE FOR GFR 1.16 MG/DL (0.70-1.30); GLOMERULAR FILTRATION RATE > 60.0 (>60); GLUCOSE, FASTING 113 MG/DL (70-100); POTASSIUM SERUM 4.6 MEQ/L (3.5-5.1); SODIUM LEVEL 139 MEQ/L (136-145); TOTAL PROTEIN 6.6 GM/DL (6.4-8.2)
[2018-02-12] MEDS: METOPROLOL TART 50 MG TAB PO ×2 (09:00→20:54)
[2018-02-12] MEDS: DOCUSATE SODIUM 100 MG CAP PO ×2 (09:00→19:25)
[2018-02-12] MEDS: raNITIdine SYRUP 150 MG/10 ML UDC PO ×2 (09:00→20:54)
[2018-02-12] MEDS: PANTOPRAZOLE 40MG TAB (PROTONIX) PO ×2 (09:00→20:55)
[2018-02-12] MEDS: POTASSIUM CITRATE 1080 MG (10MEQ) TAB PO ×3 (09:00→20:54)
[2018-02-12] MEDS: SUCRALFATE SUSP 1GM/10ML UD PO ×4 (09:01→20:54)
[2018-02-12] MEDS: HEPARIN DRIP 25,000 UNITS in APPROPRIATE DILUENT 1 EA IV ×2 (09:18→22:51)
[2018-02-12] MEDS: MORPHINE 4 MG/ML 1ML VIAL/SYRINGE (J2270) IV ×2 (11:14→19:24)
[2018-02-12] MEDS: WARFARIN SOD 5 MG TAB PO (16:51)
[2018-02-12] MEDS: aMILoride 5 MG TAB PO (20:54)
[2018-02-12] MEDS: LOSARTAN 50 MG TAB PO (20:55)
[2018-02-12] MEDS: MAGNESIUM CHLORIDE 64 MG TABCR (SLO MAG) PO (20:55)
[2018-02-12] MEDS: LEVOCETIRIZINE HYDROCHLORIDE 5 MG PO (20:56)
[2018-02-13 00:06] LABS: HEXAGONAL PHASE PHOSPHOLIPID 8 sec (0-11)
[2018-02-13] MEDS: MORPHINE 4 MG/ML 1ML VIAL/SYRINGE (J2270) IV ×2 (00:52→12:30)
[2018-02-13 01:20] LABS: PARTIAL THROMBOPLASTIN TIME 84.2 SECONDS (25.4-37.6)
[2018-02-13 05:27] LABS: HEMATOCRIT 33.5 % (42.0-52.0); HEMOGLOBIN 11.6 g/dl (13.5-17.5); MEAN CORPUSCULAR HEMOGLOBIN 30.9 pg (27.0-33.0); MEAN CORPUSCULAR HGB CONC 34.6 g/dl (32.0-36.5); MEAN CORPUSCULAR VOLUME 89.3 fl (80.0-96.0); PLATELET COUNT, AUTOMATED 133 10^3/uL (150-450); RED BLOOD COUNT 3.75 10^6/uL (4.30-6.10); RED CELL DISTRIBUTION WIDTH 12.3 % (11.5-14.5); WHITE BLOOD COUNT 5.6 10^3/uL (4.0-10.0)
[2018-02-13 05:45] LABS: INR 1.45; PROTHROMBIN TIME 17.9 SECONDS (12.1-14.4)
[2018-02-13 06:09] LABS: ALBUMIN 3.3 GM/DL (3.2-5.2); ALBUMIN/GLOBULIN RATIO 1.14 (1.00-1.93); ALKALINE PHOSPHATASE 52 U/L (45-117); ALT/SGPT 41 U/L (12-78); ANION GAP 9 MEQ/L (8-16); AST/SGOT 23 U/L (7-37); BILIRUBIN,TOTAL 0.2 MG/DL (0.2-1.0); BLOOD UREA NITROGEN 15 MG/DL (7-18); CALCIUM LEVEL 8.6 MG/DL (8.5-10.1); CARBON DIOXIDE LEVEL 26 MEQ/L (21-32); CHLORIDE LEVEL 101 MEQ/L (98-107); CREATININE FOR GFR 1.13 MG/DL (0.70-1.30); GLOMERULAR FILTRATION RATE > 60.0 (>60); GLUCOSE, FASTING 245 MG/DL (70-100); POTASSIUM SERUM 4.2 MEQ/L (3.5-5.1); SODIUM LEVEL 136 MEQ/L (136-145); TOTAL PROTEIN 6.2 GM/DL (6.4-8.2)
[2018-02-13 07:01] LABS: PARTIAL THROMBOPLASTIN TIME 99.5 SECONDS (25.4-37.6)
[2018-02-13] MEDS ORDERED: PILL CRUSHER/CUTTER 1 EACH XX (07:15)
[2018-02-13] MEDS: SUCRALFATE SUSP 1GM/10ML UD PO ×4 (07:41→21:26)
[2018-02-13] MEDS: DOCUSATE SODIUM 100 MG CAP PO ×3 (07:41→21:27)
[2018-02-13] MEDS: POTASSIUM CITRATE 1080 MG (10MEQ) TAB PO ×3 (07:42→21:27)
[2018-02-13] MEDS: PERCOCET 5MG/325MG TAB PO ×3 (07:42→23:20)
[2018-02-13] MEDS: raNITIdine SYRUP 150 MG/10 ML UDC PO ×2 (07:42→21:29)
[2018-02-13] MEDS: PANTOPRAZOLE 40MG TAB (PROTONIX) PO ×2 (07:43→21:28)
[2018-02-13] MEDS: METOPROLOL TART 50 MG TAB PO ×2 (07:43→21:28)
[2018-02-13] MEDS: HEPARIN DRIP 25,000 UNITS in APPROPRIATE DILUENT 1 EA IV (12:18)
[2018-02-13] MEDS: WARFARIN SOD 5 MG TAB PO (17:32)
[2018-02-13] MEDS: MAGNESIUM CHLORIDE 64 MG TABCR (SLO MAG) PO (21:26)
[2018-02-13] MEDS: LEVOCETIRIZINE HYDROCHLORIDE 5 MG PO (21:26)
[2018-02-13] MEDS: LOSARTAN 50 MG TAB PO (21:29)
[2018-02-13] MEDS: aMILoride 5 MG TAB PO (21:29)
[2018-02-14] MEDS: HEPARIN DRIP 25,000 UNITS in APPROPRIATE DILUENT 1 EA IV ×2 (00:53→17:38)
[2018-02-14] MEDS: MORPHINE 4 MG/ML 1ML VIAL/SYRINGE (J2270) IV ×2 (00:54→12:43)
[2018-02-14 05:59] LABS: INR 1.72; PROTHROMBIN TIME 20.5 SECONDS (12.1-14.4)
[2018-02-14 06:08] LABS: PARTIAL THROMBOPLASTIN TIME 127.3 SECONDS (25.4-37.6)
[2018-02-14] MEDS: POTASSIUM CITRATE 1080 MG (10MEQ) TAB PO ×3 (08:52→21:17)
[2018-02-14] MEDS: PERCOCET 5MG/325MG TAB PO ×3 (08:53→23:48)
[2018-02-14] MEDS: PANTOPRAZOLE 40MG TAB (PROTONIX) PO ×2 (08:54→21:17)
[2018-02-14] MEDS: SUCRALFATE SUSP 1GM/10ML UD PO (08:54)
[2018-02-14] MEDS: METOPROLOL TART 50 MG TAB PO ×2 (08:54→21:23)
[2018-02-14] MEDS: DOCUSATE SODIUM 100 MG CAP PO ×2 (08:54→21:17)
[2018-02-14] MEDS: raNITIdine SYRUP 150 MG/10 ML UDC PO ×2 (08:56→21:16)
[2018-02-14] MEDS: SUCRALFATE 1 GM TAB PO ×4 (10:03→21:17)
[2018-02-14 14:00] LABS: PARTIAL THROMBOPLASTIN TIME 73.4 SECONDS (25.4-37.6)
[2018-02-14 18:21] LABS: INR 1.89
[2018-02-14] MEDS: WARFARIN SOD 5 MG TAB PO (18:46)
[2018-02-14 20:21] LABS: PARTIAL THROMBOPLASTIN TIME 65.4 SECONDS (25.4-37.6)
[2018-02-14] MEDS: LOSARTAN 50 MG TAB PO (21:22)
[2018-02-14] MEDS: aMILoride 5 MG TAB PO (21:23)
[2018-02-14] MEDS: MAGNESIUM CHLORIDE 64 MG TABCR (SLO MAG) PO (21:23)
[2018-02-14] MEDS: LEVOCETIRIZINE HYDROCHLORIDE 5 MG PO (21:32)
[2018-02-15 06:19] LABS: PARTIAL THROMBOPLASTIN TIME 113.6 SECONDS (25.4-37.6)
[2018-02-15] MEDS: SUCRALFATE 1 GM TAB PO ×4 (08:12→20:29)
[2018-02-15] MEDS: PERCOCET 5MG/325MG TAB PO ×3 (08:17→22:27)
[2018-02-15 09:13] LABS: INR 2.54; PROTHROMBIN TIME 27.9 SECONDS (12.1-14.4)
[2018-02-15] MEDS: POTASSIUM CITRATE 1080 MG (10MEQ) TAB PO ×3 (10:31→20:29)
[2018-02-15] MEDS: METOPROLOL TART 50 MG TAB PO ×2 (10:31→20:30)
[2018-02-15] MEDS: PANTOPRAZOLE 40MG TAB (PROTONIX) PO ×2 (10:31→20:29)
[2018-02-15] MEDS: DOCUSATE SODIUM 100 MG CAP PO ×2 (10:31→20:29)
[2018-02-15] MEDS: MORPHINE 4 MG/ML 1ML VIAL/SYRINGE (J2270) IV ×2 (10:32→19:08)
[2018-02-15] MEDS: raNITIdine SYRUP 150 MG/10 ML UDC PO ×2 (10:32→20:29)
[2018-02-15] MEDS: HEPARIN DRIP 25,000 UNITS in APPROPRIATE DILUENT 1 EA IV (12:59)
[2018-02-15 13:27] LABS: PARTIAL THROMBOPLASTIN TIME 75.3 SECONDS (25.4-37.6)
[2018-02-15] MEDS: WARFARIN SOD 5 MG TAB PO (16:04)
[2018-02-15 19:03] LABS: PARTIAL THROMBOPLASTIN TIME 67.1 SECONDS (25.4-37.6)
[2018-02-15] MEDS: LEVOCETIRIZINE HYDROCHLORIDE 5 MG PO (20:29)
[2018-02-15] MEDS: MAGNESIUM CHLORIDE 64 MG TABCR (SLO MAG) PO (20:29)
[2018-02-15] MEDS: aMILoride 5 MG TAB PO (20:30)
[2018-02-15] MEDS: LOSARTAN 50 MG TAB PO (20:30)
[2018-02-15] MEDS: DEXTROMETHORPHAN 60MG/10ML SUSP 90ML BTL(DELSYM) PO (20:43)
[2018-02-16 06:00] LABS: HEMOGLOBIN 12.7 g/dl (13.5-17.5); MEAN CORPUSCULAR HGB CONC 35.3 g/dl (32.0-36.5); MEAN CORPUSCULAR VOLUME 87.8 fl (80.0-96.0); PLATELET COUNT, AUTOMATED 158 10^3/uL (150-450); RED CELL DISTRIBUTION WIDTH 12.4 % (11.5-14.5); WHITE BLOOD COUNT 5.9 10^3/uL (4.0-10.0)
[2018-02-16 06:29] LABS: ANION GAP 10 MEQ/L (8-16); BLOOD UREA NITROGEN 14 MG/DL (7-18); CALCIUM LEVEL 8.6 MG/DL (8.5-10.1); CARBON DIOXIDE LEVEL 25 MEQ/L (21-32); CHLORIDE LEVEL 104 MEQ/L (98-107); CREATININE FOR GFR 1.06 MG/DL (0.70-1.30); GLOMERULAR FILTRATION RATE > 60.0 (>60); GLUCOSE, FASTING 125 MG/DL (70-100); POTASSIUM SERUM 4.6 MEQ/L (3.5-5.1); SODIUM LEVEL 139 MEQ/L (136-145)
[2018-02-16 06:31] LABS: INR 3.41; PROTHROMBIN TIME 35.2 SECONDS (12.1-14.4)
[2018-02-16 06:33] LABS: PARTIAL THROMBOPLASTIN TIME 91.4 SECONDS (25.4-37.6)
[2018-02-16] MEDS: POTASSIUM CITRATE 1080 MG (10MEQ) TAB PO ×3 (07:56→21:37)
[2018-02-16] MEDS: PANTOPRAZOLE 40MG TAB (PROTONIX) PO ×2 (07:56→21:37)
[2018-02-16] MEDS: DOCUSATE SODIUM 100 MG CAP PO ×2 (07:57→21:37)
[2018-02-16] MEDS: SUCRALFATE 1 GM TAB PO ×4 (07:57→21:37)
[2018-02-16] MEDS: PERCOCET 5MG/325MG TAB PO ×3 (07:58→21:40)
[2018-02-16] MEDS: raNITIdine SYRUP 150 MG/10 ML UDC PO ×2 (07:58→21:39)
[2018-02-16] MEDS: METOPROLOL TART 50 MG TAB PO ×2 (07:58→21:38)
[2018-02-16] MEDS: DEXTROMETHORPHAN 60MG/10ML SUSP 90ML BTL(DELSYM) PO (13:58)
[2018-02-16] MEDS: WARFARIN SOD 5 MG TAB PO (16:29)
[2018-02-16] MEDS: WARFARIN SOD 3 MG TAB PO (16:30)
[2018-02-16] MEDS: LEVOCETIRIZINE HYDROCHLORIDE 5 MG PO (21:36)
[2018-02-16] MEDS: MAGNESIUM CHLORIDE 64 MG TABCR (SLO MAG) PO (21:37)
[2018-02-16] MEDS: aMILoride 5 MG TAB PO (21:37)
[2018-02-16] MEDS: LOSARTAN 50 MG TAB PO (21:38)
[2018-02-17 06:32] LABS: INR 4.43; PROTHROMBIN TIME 43.3 SECONDS (12.1-14.4)
[2018-02-17] MEDS: DOCUSATE SODIUM 100 MG CAP PO ×2 (08:37→20:49)
[2018-02-17] MEDS: raNITIdine SYRUP 150 MG/10 ML UDC PO ×2 (08:37→20:50)
[2018-02-17] MEDS: METOPROLOL TART 50 MG TAB PO ×2 (08:38→20:51)
[2018-02-17] MEDS: POTASSIUM CITRATE 1080 MG (10MEQ) TAB PO ×3 (08:39→20:50)
[2018-02-17] MEDS: PANTOPRAZOLE 40MG TAB (PROTONIX) PO ×2 (08:39→20:49)
[2018-02-17] MEDS: SUCRALFATE 1 GM TAB PO ×4 (08:39→20:49)
[2018-02-17] MEDS: PERCOCET 5MG/325MG TAB PO ×3 (08:46→21:18)
[2018-02-17] MEDS: MAGNESIUM CHLORIDE 64 MG TABCR (SLO MAG) PO (20:49)
[2018-02-17] MEDS: aMILoride 5 MG TAB PO (20:50)
[2018-02-17] MEDS: LEVOCETIRIZINE HYDROCHLORIDE 5 MG PO (20:50)
[2018-02-17] MEDS: LOSARTAN 50 MG TAB PO (20:51)
[2018-02-18 05:51] LABS: INR 3.95; PROTHROMBIN TIME 39.6 SECONDS (12.1-14.4)
[2018-02-18] MEDS: PANTOPRAZOLE 40MG TAB (PROTONIX) PO ×2 (08:02→21:18)
[2018-02-18] MEDS: DOCUSATE SODIUM 100 MG CAP PO ×2 (08:02→21:18)
[2018-02-18] MEDS: SUCRALFATE 1 GM TAB PO ×4 (08:02→21:18)
[2018-02-18] MEDS: raNITIdine SYRUP 150 MG/10 ML UDC PO ×2 (08:03→21:20)
[2018-02-18] MEDS: POTASSIUM CITRATE 1080 MG (10MEQ) TAB PO ×3 (08:03→21:18)
[2018-02-18] MEDS: METOPROLOL TART 50 MG TAB PO ×2 (08:03→21:25)
[2018-02-18] MEDS: PERCOCET 5MG/325MG TAB PO (08:08)
[2018-02-18] MEDS ORDERED: traMADol 50 MG TAB PO (09:00)
[2018-02-18] MEDS ORDERED: KETOROLAC 30 MG/ML VIAL (J1885) IV (09:00)
[2018-02-18] MEDS ORDERED: oxyCODONE 5MG TAB PO (09:00)
[2018-02-18] MEDS ORDERED: oxyCODONE 10 MG CR TAB PO (09:00)
[2018-02-18] MEDS: oxyCODONE 10 MG CR TAB PO ×2 (09:47→21:21)
[2018-02-18] MEDS: oxyCODONE 5MG TAB PO ×3 (12:25→21:30)
[2018-02-18] MEDS: LEVOCETIRIZINE HYDROCHLORIDE 5 MG PO (21:18)
[2018-02-18] MEDS: MAGNESIUM CHLORIDE 64 MG TABCR (SLO MAG) PO (21:19)
[2018-02-18] MEDS: LOSARTAN 50 MG TAB PO (21:24)
[2018-02-18] MEDS: aMILoride 5 MG TAB PO (21:25)
[2018-02-19] MEDS ORDERED: SODIUM CHLORIDE 0.9% INJ 10 ML SYR IV (05:30)
[2018-02-19] MEDS: SODIUM CHLORIDE 0.9% INJ 10 ML SYR IV ×2 (05:40→17:53)
[2018-02-19 05:54] LABS: HEMOGLOBIN 12.1 g/dl (13.5-17.5); MEAN CORPUSCULAR HEMOGLOBIN 30.3 pg (27.0-33.0); MEAN CORPUSCULAR HGB CONC 34.6 g/dl (32.0-36.5); MEAN CORPUSCULAR VOLUME 87.5 fl (80.0-96.0); PLATELET COUNT, AUTOMATED 146 10^3/uL (150-450); RED CELL DISTRIBUTION WIDTH 12.1 % (11.5-14.5); WHITE BLOOD COUNT 5.9 10^3/uL (4.0-10.0)
[2018-02-19 06:11] LABS: INR 2.34; PROTHROMBIN TIME 26.1 SECONDS (12.1-14.4)
[2018-02-19] MEDS: POTASSIUM CITRATE 1080 MG (10MEQ) TAB PO ×3 (09:00→20:23)
[2018-02-19] MEDS: PANTOPRAZOLE 40MG TAB (PROTONIX) PO ×2 (09:01→20:22)
[2018-02-19] MEDS: WARFARIN SOD 5 MG TAB PO ×2 (09:02→18:58)
[2018-02-19] MEDS: raNITIdine SYRUP 150 MG/10 ML UDC PO ×2 (09:04→20:24)
[2018-02-19] MEDS: METOPROLOL TART 50 MG TAB PO ×2 (09:04→20:24)
[2018-02-19] MEDS: oxyCODONE 10 MG CR TAB PO ×2 (09:05→11:40)
[2018-02-19] MEDS: oxyCODONE 5MG TAB PO ×3 (09:06→20:25)
[2018-02-19] MEDS: DOCUSATE SODIUM 100 MG CAP PO ×2 (09:07→20:23)
[2018-02-19] MEDS: SUCRALFATE 1 GM TAB PO ×4 (09:07→20:22)
[2018-02-19 18:28] LABS: INR 2.05; PROTHROMBIN TIME 23.5 SECONDS (12.1-14.4)
[2018-02-19] MEDS: aMILoride 5 MG TAB PO (20:22)
[2018-02-19] MEDS: LEVOCETIRIZINE HYDROCHLORIDE 5 MG PO (20:22)
[2018-02-19] MEDS: MAGNESIUM CHLORIDE 64 MG TABCR (SLO MAG) PO (20:22)
[2018-02-19] MEDS: LOSARTAN 50 MG TAB PO (20:24)
[2018-02-19] MEDS: ENOXAPARIN 150 MG/ML SYR (J1650) SC (20:25)
[2018-02-19] MEDS: oxyCODONE 20 MG CR TAB PO (20:26)
[2018-02-20] MEDS: oxyCODONE 5MG TAB PO ×5 (01:18→20:50)
[2018-02-20] MEDS: SODIUM CHLORIDE 0.9% INJ 10 ML SYR IV ×2 (05:42→17:17)
[2018-02-20 06:09] LABS: INR 2.83; PROTHROMBIN TIME 30.4 SECONDS (12.1-14.4)
[2018-02-20] MEDS: METOPROLOL TART 50 MG TAB PO ×2 (08:28→20:13)
[2018-02-20] MEDS: DOCUSATE SODIUM 100 MG CAP PO ×2 (08:28→20:13)
[2018-02-20] MEDS: POTASSIUM CITRATE 1080 MG (10MEQ) TAB PO ×3 (08:28→20:14)
[2018-02-20] MEDS: raNITIdine SYRUP 150 MG/10 ML UDC PO ×2 (08:28→20:14)
[2018-02-20] MEDS: PANTOPRAZOLE 40MG TAB (PROTONIX) PO ×2 (08:28→20:14)
[2018-02-20] MEDS: SUCRALFATE 1 GM TAB PO ×4 (08:28→20:14)
[2018-02-20] MEDS: oxyCODONE 20 MG CR TAB PO ×2 (08:29→20:15)
[2018-02-20] MEDS ORDERED: WARFARIN SOD 5 MG TAB PO (17:00)
[2018-02-20] MEDS: WARFARIN SOD 5 MG TAB PO (17:17)
[2018-02-20] MEDS: aMILoride 5 MG TAB PO (20:13)
[2018-02-20] MEDS: LOSARTAN 50 MG TAB PO (20:14)
[2018-02-20] MEDS: MAGNESIUM CHLORIDE 64 MG TABCR (SLO MAG) PO (20:14)
[2018-02-20] MEDS: LEVOCETIRIZINE HYDROCHLORIDE 5 MG PO (20:20)
[2018-02-21] MEDS: oxyCODONE 5MG TAB PO ×4 (05:31→22:14)
[2018-02-21] MEDS: SODIUM CHLORIDE 0.9% INJ 10 ML SYR IV ×2 (05:31→17:43)
[2018-02-21 05:56] LABS: INR 4.62; PROTHROMBIN TIME 44.8 SECONDS (12.1-14.4)
[2018-02-21] MEDS: SUCRALFATE 1 GM TAB PO ×4 (07:30→22:13)
[2018-02-21] MEDS: METOPROLOL TART 50 MG TAB PO ×2 (09:21→22:13)
[2018-02-21] MEDS: DOCUSATE SODIUM 100 MG CAP PO ×2 (09:21→22:10)
[2018-02-21] MEDS: POTASSIUM CITRATE 1080 MG (10MEQ) TAB PO ×3 (09:21→22:11)
[2018-02-21] MEDS: PANTOPRAZOLE 40MG TAB (PROTONIX) PO ×2 (09:21→22:10)
[2018-02-21] MEDS: raNITIdine SYRUP 150 MG/10 ML UDC PO ×2 (09:21→22:13)
[2018-02-21] MEDS: oxyCODONE 20 MG CR TAB PO ×2 (09:48→22:14)
[2018-02-21] MEDS: LEVOCETIRIZINE HYDROCHLORIDE 5 MG PO (22:10)
[2018-02-21] MEDS: MAGNESIUM CHLORIDE 64 MG TABCR (SLO MAG) PO (22:10)
[2018-02-21] MEDS: LOSARTAN 50 MG TAB PO (22:12)
[2018-02-21] MEDS: aMILoride 5 MG TAB PO (22:12)
[2018-02-22] MEDS: oxyCODONE 5MG TAB PO ×3 (05:20→16:26)
[2018-02-22 05:36] LABS: HEMATOCRIT 32.1 % (42.0-52.0); HEMOGLOBIN 11.3 g/dl (13.5-17.5); MEAN CORPUSCULAR HEMOGLOBIN 30.7 pg (27.0-33.0); MEAN CORPUSCULAR HGB CONC 35.2 g/dl (32.0-36.5); MEAN CORPUSCULAR VOLUME 87.2 fl (80.0-96.0); PLATELET COUNT, AUTOMATED 141 10^3/uL (150-450); RED BLOOD COUNT 3.68 10^6/uL (4.30-6.10)
[2018-02-22 05:48] LABS: PROTHROMBIN TIME 37.6 SECONDS (12.1-14.4)
[2018-02-22] MEDS: SODIUM CHLORIDE 0.9% INJ 10 ML SYR IV ×2 (06:00→16:17)
[2018-02-22] MEDS: raNITIdine SYRUP 150 MG/10 ML UDC PO ×2 (08:11→21:36)
[2018-02-22] MEDS: DOCUSATE SODIUM 100 MG CAP PO ×2 (08:11→21:35)
[2018-02-22] MEDS: POTASSIUM CITRATE 1080 MG (10MEQ) TAB PO ×3 (08:11→21:37)
[2018-02-22] MEDS: SUCRALFATE 1 GM TAB PO ×4 (08:11→21:35)
[2018-02-22] MEDS: METOPROLOL TART 50 MG TAB PO ×2 (08:12→21:37)
[2018-02-22] MEDS: oxyCODONE 20 MG CR TAB PO ×2 (08:12→21:37)
[2018-02-22] MEDS: PANTOPRAZOLE 40MG TAB (PROTONIX) PO ×2 (08:12→21:34)
[2018-02-22 17:11] LABS: INR 2.71; PROTHROMBIN TIME 29.3 SECONDS (12.1-14.4)
[2018-02-22] MEDS: WARFARIN SOD 7.5 MG TAB PO (17:55)
[2018-02-22] MEDS: LOSARTAN 50 MG TAB PO (21:35)
[2018-02-22] MEDS: LEVOCETIRIZINE HYDROCHLORIDE 5 MG PO (21:36)
[2018-02-22] MEDS: aMILoride 5 MG TAB PO (21:36)
[2018-02-22] MEDS: MAGNESIUM CHLORIDE 64 MG TABCR (SLO MAG) PO (21:37)
[2018-02-23 05:32] LABS: INR 2.76; PROTHROMBIN TIME 29.8 SECONDS (12.1-14.4)
[2018-02-23] MEDS: SODIUM CHLORIDE 0.9% INJ 10 ML SYR IV ×2 (06:00→17:23)
[2018-02-23] MEDS: raNITIdine SYRUP 150 MG/10 ML UDC PO ×2 (08:36→20:27)
[2018-02-23] MEDS: PANTOPRAZOLE 40MG TAB (PROTONIX) PO ×2 (08:36→20:28)
[2018-02-23] MEDS: DOCUSATE SODIUM 100 MG CAP PO ×2 (08:36→20:27)
[2018-02-23] MEDS: METOPROLOL TART 50 MG TAB PO ×2 (08:36→20:28)
[2018-02-23] MEDS: POTASSIUM CITRATE 1080 MG (10MEQ) TAB PO ×3 (08:36→20:28)
[2018-02-23] MEDS: SUCRALFATE 1 GM TAB PO ×4 (08:36→20:27)
[2018-02-23] MEDS: oxyCODONE 20 MG CR TAB PO ×2 (08:37→20:29)
[2018-02-23] MEDS: oxyCODONE 5MG TAB PO ×3 (09:23→20:32)
[2018-02-23] MEDS: WARFARIN SOD 7.5 MG TAB PO (17:22)
[2018-02-23] MEDS: LEVOCETIRIZINE HYDROCHLORIDE 5 MG PO (20:26)
[2018-02-23] MEDS: MAGNESIUM CHLORIDE 64 MG TABCR (SLO MAG) PO (20:27)
[2018-02-23] MEDS: LOSARTAN 50 MG TAB PO (20:28)
[2018-02-23] MEDS: aMILoride 5 MG TAB PO (20:29)
[2018-02-24] MEDS: SODIUM CHLORIDE 0.9% INJ 10 ML SYR IV (05:30)
[2018-02-24 05:57] LABS: INR 2.57; PROTHROMBIN TIME 28.1 SECONDS (12.1-14.4)
[2018-02-24] MEDS: DOCUSATE SODIUM 100 MG CAP PO (08:05)
[2018-02-24] MEDS: raNITIdine SYRUP 150 MG/10 ML UDC PO (08:05)
[2018-02-24] MEDS: METOPROLOL TART 50 MG TAB PO (08:06)
[2018-02-24] MEDS: SUCRALFATE 1 GM TAB PO (08:06)
[2018-02-24] MEDS: oxyCODONE 20 MG CR TAB PO (08:06)
[2018-02-24] MEDS: POTASSIUM CITRATE 1080 MG (10MEQ) TAB PO (08:07)
[2018-02-24] MEDS: PANTOPRAZOLE 40MG TAB (PROTONIX) PO (08:07)
[2018-02-24] MEDS: oxyCODONE 5MG TAB PO (08:07)
== END 2018-02-24 11:28 | disposition home health service (06) | DRG 197 ==
LOC: M ED INP 23:50 → M ICU 02-07 13:44 → M MSPAV 02-11 14:56 → M PCU 23:50 → M ICU 02-03 02:38 → M ED 18:47 → M ICU 02-07 15:29 → M PCU 02-03 16:23
PROC: 02HV33Z Insertion of Infusion Device into Superior Vena Cava, Percutaneous Approach (ICD-10-PCS; principal; 2018-02-07 14:09)
DX: I82.431 Acute embolism and thrombosis of right popliteal vein (principal); I26.92 Saddle embolus of pulmonary artery without acute cor pulmonale; J96.01 Acute respiratory failure with hypoxia; Q61.3 Polycystic kidney, unspecified; E29.1 Testicular hypofunction; I10 Essential (primary) hypertension; J30.9 Allergic rhinitis, unspecified; K21.9 Gastro-esophageal reflux disease without esophagitis; Z91.041 Radiographic dye allergy status; Z88.6 Allergy status to analgesic agent; Z88.8 Allergy status to other drugs, medicaments and biological substances; Z87.891 Personal history of nicotine dependence; Z79.899 Other long term (current) drug therapy

== ENCOUNTER → 2018-02-25 | Outpatient (REF) | payer OTHER ==
[2018-02-25 13:09] LABS: INR 2.34; PROTHROMBIN TIME 26.1 SECONDS (12.1-14.4)
== END ==
LOC: M SHH 12:39
DX: I26.99 Other pulmonary embolism without acute cor pulmonale (principal)

== ENCOUNTER → 2018-02-27 | Outpatient (REF) | payer OTHER ==
[2018-02-27 11:47] LABS: INR 2.29; PROTHROMBIN TIME 25.7 SECONDS (12.1-14.4)
== END ==
LOC: M SHH 11:12
DX: I26.99 Other pulmonary embolism without acute cor pulmonale (principal)

== ENCOUNTER → 2018-03-02 | Outpatient (REF) | payer OTHER ==
[2018-03-02 12:31] LABS: INR 2.68; PROTHROMBIN TIME 29.1 SECONDS (12.1-14.4)
== END ==
LOC: M SHH 10:53
DX: I26.99 Other pulmonary embolism without acute cor pulmonale (principal)

== ENCOUNTER → 2018-03-05 | Outpatient (REF) | payer OTHER ==
[2018-03-05 18:23] LABS: INR 2.61; PROTHROMBIN TIME 28.5 SECONDS (12.1-14.4)
== END ==
LOC: M SHH 16:24
DX: Z79.01 Long term (current) use of anticoagulants (principal); I26.99 Other pulmonary embolism without acute cor pulmonale
CPT/HCPCS: 85610

== ENCOUNTER → 2018-03-09 | Outpatient (REF) | payer OTHER ==
[2018-03-09 14:14] LABS: PROTHROMBIN TIME 34.3 SECONDS (12.1-14.4)
== END ==
LOC: M LAB REF 13:33
DX: Z79.01 Long term (current) use of anticoagulants (principal)

== ENCOUNTER → 2018-03-12 | Outpatient (REF) | payer OTHER ==
[2018-03-12 14:15] LABS: INR 3.74; PROTHROMBIN TIME 37.9 SECONDS (12.1-14.4)
== END ==
LOC: M SHH 13:25
DX: I26.99 Other pulmonary embolism without acute cor pulmonale (principal); I82.431 Acute embolism and thrombosis of right popliteal vein; Q61.3 Polycystic kidney, unspecified; I10 Essential (primary) hypertension; G57.31 Lesion of lateral popliteal nerve, right lower limb; N18.2 Chronic kidney disease, stage 2 (mild)

== ENCOUNTER → 2018-03-23 | Outpatient (REF) | payer OTHER ==
[2018-03-23 14:00] LABS: INR 3.23; PROTHROMBIN TIME 33.7 SECONDS (12.1-14.4)
== END ==
LOC: M SHH 12:06
DX: I26.99 Other pulmonary embolism without acute cor pulmonale (principal)
CPT/HCPCS: 85610

== ENCOUNTER → 2018-04-02 | Outpatient (REF) | payer OTHER ==
[2018-04-02 15:28] LABS: INR 3.47; PROTHROMBIN TIME 35.7 SECONDS (12.1-14.4)
== END ==
LOC: M SHH 15:08
DX: I26.99 Other pulmonary embolism without acute cor pulmonale (principal); I82.431 Acute embolism and thrombosis of right popliteal vein; D61.3 Idiopathic aplastic anemia; I10 Essential (primary) hypertension; G57.31 Lesion of lateral popliteal nerve, right lower limb; N18.2 Chronic kidney disease, stage 2 (mild)

== ENCOUNTER → 2018-04-09 | Outpatient (CLI) | payer OTHER ==
[2018-04-09 10:41] LABS: INR 4.47; PROTHROMBIN TIME 43.7 SECONDS (12.1-14.4)
== END ==
LOC: M LAB 10:00
DX: I26.99 Other pulmonary embolism without acute cor pulmonale (principal)
CPT/HCPCS: 85610

== ENCOUNTER → 2018-04-13 | Outpatient (REF) | payer OTHER ==
[2018-04-13 15:11] LABS: PROTHROMBIN TIME 31.8 SECONDS (12.1-14.4)
== END ==
LOC: M SHH 14:47
DX: I26.99 Other pulmonary embolism without acute cor pulmonale (principal); I82.431 Acute embolism and thrombosis of right popliteal vein; Q61.3 Polycystic kidney, unspecified; I10 Essential (primary) hypertension; G57.31 Lesion of lateral popliteal nerve, right lower limb; N18.2 Chronic kidney disease, stage 2 (mild)

== ENCOUNTER → 2018-04-21 | Outpatient (REF) | payer OTHER ==
[2018-04-21 17:26] LABS: PROTHROMBIN TIME 28.4 SECONDS (12.1-14.4)
== END ==
LOC: M SHH 16:15
DX: Z51.81 Encounter for therapeutic drug level monitoring (principal); Z79.01 Long term (current) use of anticoagulants
CPT/HCPCS: 85610

== ENCOUNTER → 2018-04-22 | Outpatient (CLI) | payer OTHER | LOC: M CARPUL 10:44 | DX: Z86.711 Personal history of pulmonary embolism (principal); R06.00 Dyspnea, unspecified; I27.20 Pulmonary hypertension, unspecified | CPT/HCPCS: 93306 ==

== ENCOUNTER → 2018-04-29 | Outpatient (REF) | payer OTHER ==
[2018-04-29 17:04] LABS: INR 3.03; PROTHROMBIN TIME 32.1 SECONDS (12.1-14.4)
== END ==
LOC: M SHH 15:25
DX: Z51.81 Encounter for therapeutic drug level monitoring (principal); Z79.01 Long term (current) use of anticoagulants; Z86.711 Personal history of pulmonary embolism
CPT/HCPCS: 85610

== ENCOUNTER 2018-05-04 22:24 | Emergency (ER) | payer OTHER ==
[2018-05-04 22:59] LABS: BASO # 0.1 10^3/uL (0.0-0.2); BASO % 0.6 % (0.0-1.0); EOS % 0.1 % (0.0-3.0); HEMOGLOBIN 13.5 g/dl (13.5-17.5); IMMATURE GRANULOCYTE % 0.2 % (0-3.0); LYMPH % 19.8 % (24.0-44.0); MEAN CORPUSCULAR HEMOGLOBIN 29.7 pg (27.0-33.0); MEAN CORPUSCULAR HGB CONC 34.6 g/dl (32.0-36.5); MEAN CORPUSCULAR VOLUME 85.9 fl (80.0-96.0); MONO # 0.9 10^3/uL (0.0-0.8); MONO % 8.4 % (0.0-5.0); NEUTROPHILS # 7.1 10^3/uL (1.8-7.7); NEUTROPHILS % 70.9 % (36.0-66.0); PLATELET COUNT, AUTOMATED 198 10^3/uL (150-450); RED BLOOD COUNT 4.54 10^6/uL (4.30-6.10); RED CELL DISTRIBUTION WIDTH 12.1 % (11.5-14.5); WHITE BLOOD COUNT 10.1 10^3/uL (4.0-10.0)
[2018-05-04 23:14] LABS: PARTIAL THROMBOPLASTIN TIME 77.2 SECONDS (25.4-37.6)
[2018-05-04 23:28] LABS: ALBUMIN 3.7 GM/DL (3.2-5.2); ALBUMIN/GLOBULIN RATIO 1.19 (1.00-1.93); ALKALINE PHOSPHATASE 71 U/L (45-117); ALT/SGPT 24 U/L (12-78); ANION GAP 11 MEQ/L (8-16); AST/SGOT 16 U/L (7-37); BILIRUBIN,DIRECT 0.1 MG/DL (0.0-0.2); BILIRUBIN,TOTAL 0.4 MG/DL (0.2-1.0); BLOOD UREA NITROGEN 15 MG/DL (7-18); CALCIUM LEVEL 7.9 MG/DL (8.5-10.1); CARBON DIOXIDE LEVEL 27 MEQ/L (21-32); CHLORIDE LEVEL 101 MEQ/L (98-107); CK-MB VALUE MASS < 1.0 NG/ML (<3.6); CPK CREATINE PHOSPHOKINASE 77 U/L (39-308); FREE T4 1.19 NG/DL (0.76-1.46); GLOMERULAR FILTRATION RATE > 60.0 (>60); GLUCOSE, FASTING 109 MG/DL (70-100); LIPASE 187 U/L (73-393); SODIUM LEVEL 139 MEQ/L (136-145); TOTAL PROTEIN 6.8 GM/DL (6.4-8.2); TROPONIN I < 0.02 NG/ML (< 0.10)
[2018-05-04 23:30] LABS: PROTHROMBIN TIME 54.7 SECONDS (12.1-14.4)
[2018-05-04 23:39] LABS: INR 5.94
[2018-05-05] MEDS ORDERED: ISOVUE-370 76% 100ML VIAL (Q9967) As Ordered (00:04)
[2018-05-05] MEDS: NS 1,000 ML IV (00:55)
[2018-05-05] MEDS: MORPHINE 4 MG/ML 1ML VIAL/SYRINGE (J2270) IV (01:00)
[2018-05-05 02:22] LABS: NT-PRO BNP 59 PG/ML (<125)
[2018-05-05 05:20] LABS: CK-MB VALUE MASS < 1.0 NG/ML (<3.6); CPK CREATINE PHOSPHOKINASE 64 U/L (39-308); MB/CK RELATIVE INDEX 1.56 (< OR =4); TROPONIN I < 0.02 NG/ML (< 0.10)
== END 2018-05-05 06:37 | disposition home or self-care (01) ==
LOC: M ED 22:24
DX: I26.99 Other pulmonary embolism without acute cor pulmonale (principal); I10 Essential (primary) hypertension; K21.9 Gastro-esophageal reflux disease without esophagitis; Q61.3 Polycystic kidney, unspecified; Z86.718 Personal history of other venous thrombosis and embolism; Z79.899 Other long term (current) drug therapy; Z79.01 Long term (current) use of anticoagulants; Z88.8 Allergy status to other drugs, medicaments and biological substances; Z87.891 Personal history of nicotine dependence
CPT/HCPCS: J2270

== ENCOUNTER → 2018-05-06 | Outpatient (REF) | payer OTHER ==
[2018-05-06 17:15] LABS: INR 2.92; PROTHROMBIN TIME 31.1 SECONDS (12.1-14.4)
== END ==
LOC: M LABDRAWC 16:19
DX: I82.401 Acute embolism and thrombosis of unspecified deep veins of right lower extremity (principal)
CPT/HCPCS: 85610

== ENCOUNTER → 2018-05-11 | Outpatient (REF) | payer OTHER ==
[2018-05-12 10:57] LABS: INR 2.95; PROTHROMBIN TIME 31.4 SECONDS (12.1-14.4)
== END ==
LOC: M SHH 10:48
DX: I82.401 Acute embolism and thrombosis of unspecified deep veins of right lower extremity (principal); Z79.01 Long term (current) use of anticoagulants

== ENCOUNTER → 2018-05-18 | Outpatient (REF) | payer OTHER ==
[~2018-05-18] MED LIST changes: +ALIG4CAP PO; +AMIL5TAB4 PO; +CLOM50TA9 PO; +COUM1TAB14 PO; +COUM7.5T PO; +DOCU100C16 PO; +GABA-845 PO; +KEFL500C17 PO; +LOSA50TA73 PO; +MAGN64TASA PO; +MIRA3350 PO; +OXYC10TA12 PO; +OXYC20TA40 PO; +OXYCO5TA PO; +PANT40TA3 PO; +PROT1TAB2 PO; +RIZA10TA4 PO; +SENO8.6T5 PO; +SUCR1TA PO; +TRAM50TA2 PO
[2018-05-18 15:09] LABS: INR 3.8; PROTHROMBIN TIME 38.4 SECONDS (12.1-14.4)
== END ==
LOC: M SHH 14:41
PROVIDERS: ATTEND Family Medicine
DX: Z79.01 Long term (current) use of anticoagulants (principal); I82.401 Acute embolism and thrombosis of unspecified deep veins of right lower extremity

== ENCOUNTER → 2018-05-27 | Outpatient (REF) | payer OTHER ==
[~2018-05-27] MED LIST changes: -LOSA50TA73 PO; +LOSA50TA88 PO
[2018-05-27 13:20] LABS: INR 2.85; PROTHROMBIN TIME 30.5 SECONDS (12.1-14.4)
== END ==
LOC: M SHH 12:44
PROVIDERS: ATTEND General Practice
DX: I26.99 Other pulmonary embolism without acute cor pulmonale (principal)

== ENCOUNTER → 2018-05-29 | Outpatient (REF) | payer OTHER ==
[2018-05-29 18:11] LABS: PERCENT SATURATION 28.1 % (19.7-50.0)
[2018-05-29 18:22] LABS: FOLATE 4.6 NG/ML
== END ==
LOC: M LAB REF 16:41
PROVIDERS: ATTEND Internal Medicine Nephrology
DX: D64.9 Anemia, unspecified (principal)

== ENCOUNTER → 2018-06-05 | Outpatient (CLI) | payer OTHER ==
[2018-06-05 09:40] LABS: INR 4.78; PROTHROMBIN TIME 46.1 SECONDS (12.1-14.4)
== END ==
LOC: M LAB 08:41
PROVIDERS: ATTEND Emergency Medicine
DX: I26.99 Other pulmonary embolism without acute cor pulmonale (principal)

== ENCOUNTER → 2018-06-11 | Outpatient (REF) | payer OTHER ==
[2018-06-11 14:11] LABS: INR 3.83; PROTHROMBIN TIME 38.6 SECONDS (12.1-14.4)
== END ==
LOC: M SHH 13:44
PROVIDERS: ATTEND General Practice
DX: I26.99 Other pulmonary embolism without acute cor pulmonale (principal)

== ENCOUNTER → 2018-06-18 | Outpatient (REF) | payer OTHER ==
[2018-06-18 19:32] LABS: INR 3.47; PROTHROMBIN TIME 35.7 SECONDS (12.1-14.4)
== END ==
LOC: M SHH 18:21
PROVIDERS: ATTEND General Practice
DX: I26.99 Other pulmonary embolism without acute cor pulmonale (principal); Z79.01 Long term (current) use of anticoagulants

== ENCOUNTER → 2018-06-25 | Outpatient (REF) | payer OTHER ==
[2018-06-25 16:32] LABS: INR 3.47; PROTHROMBIN TIME 35.7 SECONDS (12.1-14.4)
== END ==
LOC: M SHH 15:52
PROVIDERS: ATTEND General Practice
DX: Z79.01 Long term (current) use of anticoagulants (principal)

== ENCOUNTER → 2018-07-03 | Outpatient (REF) | payer OTHER ==
[2018-07-03 14:53] LABS: INR 4.5; PROTHROMBIN TIME 43.9 SECONDS (12.1-14.4)
== END ==
LOC: M SHH 14:27
PROVIDERS: ATTEND Emergency Medicine
DX: I26.99 Other pulmonary embolism without acute cor pulmonale (principal); I82.431 Acute embolism and thrombosis of right popliteal vein; Q61.3 Polycystic kidney, unspecified; I10 Essential (primary) hypertension; G57.31 Lesion of lateral popliteal nerve, right lower limb; N18.2 Chronic kidney disease, stage 2 (mild)

== ENCOUNTER → 2018-07-08 | Outpatient (REF) | payer OTHER ==
[2018-07-08 15:09] LABS: INR 3.2; PROTHROMBIN TIME 33.5 SECONDS (12.1-14.4)
== END ==
LOC: M SHH 14:38
PROVIDERS: ATTEND General Practice
DX: Z79.01 Long term (current) use of anticoagulants (principal)

== ENCOUNTER → 2018-07-10 | Outpatient (CLI) | payer OTHER ==
--- NOTE | 2018-07-10 17:52 | REP ---
Right lower extremity Duplex Doppler venous ultrasound: Real time compression and duplex Doppler interrogation of the right lower extremity deep venous system is performed. The right common femoral, superficial femoral and popliteal veins are fully compressible with transducer pressure and demonstrate normal spontaneous and phasic flow, without evidence of deep venous thrombosis. Impression: No evidence of deep venous thrombosis of the right lower extremity femoral popliteal venous system. Electronically Signed by William Knight MD 07/10/2018 05:44 P
== END ==
LOC: M RAD 16:34
PROVIDERS: ATTEND Surgery Vascular Surgery
DX: I82.401 Acute embolism and thrombosis of unspecified deep veins of right lower extremity (principal)

== ENCOUNTER → 2018-07-15 | Outpatient (REF) | payer OTHER ==
[2018-07-15 16:49] LABS: INR 4.17; PROTHROMBIN TIME 41.3 SECONDS (12.1-14.4)
== END ==
LOC: M SHH 15:59
PROVIDERS: ATTEND Family Medicine
DX: I26.99 Other pulmonary embolism without acute cor pulmonale (principal); I82.401 Acute embolism and thrombosis of unspecified deep veins of right lower extremity

== ENCOUNTER → 2018-07-17 | Outpatient (REF) | payer OTHER ==
[2018-07-17 15:36] LABS: INR 4.83; PROTHROMBIN TIME 46.4 SECONDS (12.1-14.4)
== END ==
LOC: M SHH 15:03
PROVIDERS: ATTEND Family Medicine
DX: I26.99 Other pulmonary embolism without acute cor pulmonale (principal); I82.401 Acute embolism and thrombosis of unspecified deep veins of right lower extremity; Z79.01 Long term (current) use of anticoagulants

== ENCOUNTER → 2018-07-23 | Outpatient (REF) | payer OTHER ==
[2018-07-23 15:37] LABS: INR 4.46; PROTHROMBIN TIME 43.6 SECONDS (12.1-14.4)
== END ==
LOC: M LAB REF 15:14 → M SHH 15:14
PROVIDERS: ATTEND Family Medicine
DX: I26.99 Other pulmonary embolism without acute cor pulmonale (principal); I82.401 Acute embolism and thrombosis of unspecified deep veins of right lower extremity; Z79.01 Long term (current) use of anticoagulants

== ENCOUNTER → 2018-07-29 | Outpatient (REF) | payer OTHER ==
[2018-07-29 18:29] LABS: INR 2.33
== END ==
LOC: M SHH 16:54
PROVIDERS: ATTEND Family Medicine
DX: I26.99 Other pulmonary embolism without acute cor pulmonale (principal); I82.401 Acute embolism and thrombosis of unspecified deep veins of right lower extremity; Z79.01 Long term (current) use of anticoagulants

== ENCOUNTER → 2018-08-06 | Outpatient (REF) | payer OTHER ==
[2018-08-06 12:50] LABS: INR 3.76; PROTHROMBIN TIME 38.1 SECONDS (12.1-14.4)
== END ==
LOC: M SHH 12:30
PROVIDERS: ATTEND Family Medicine
DX: I26.99 Other pulmonary embolism without acute cor pulmonale (principal); I82.401 Acute embolism and thrombosis of unspecified deep veins of right lower extremity

== ENCOUNTER → 2018-08-10 | Outpatient (CLI) | payer OTHER ==
[2018-08-10 16:52] LABS: INR 3.26
== END ==
LOC: M LAB 16:14
PROVIDERS: ATTEND Family Medicine
DX: I26.99 Other pulmonary embolism without acute cor pulmonale (principal); I82.401 Acute embolism and thrombosis of unspecified deep veins of right lower extremity

== ENCOUNTER → 2018-08-19 | Outpatient (REF) | payer OTHER ==
[2018-08-19 15:52] LABS: INR 3.47; PROTHROMBIN TIME 35.7 SECONDS (12.1-14.4)
== END ==
LOC: M SHH 15:06
PROVIDERS: ATTEND Family Medicine
DX: I26.99 Other pulmonary embolism without acute cor pulmonale (principal); I82.401 Acute embolism and thrombosis of unspecified deep veins of right lower extremity

== ENCOUNTER → 2018-09-04 | Outpatient (REF) | payer OTHER ==
[~2018-09-04] MED LIST changes: -NORC10TA21 PO; +NORC1TAB5 PO
[2018-09-04 12:25] LABS: INR 2.1
== END ==
LOC: M LABDRAWC 11:22
PROVIDERS: ATTEND Family Medicine
DX: I26.99 Other pulmonary embolism without acute cor pulmonale (principal); I82.401 Acute embolism and thrombosis of unspecified deep veins of right lower extremity

== ENCOUNTER → 2018-09-11 | Outpatient (REF) | payer OTHER ==
[2018-09-11 11:47] LABS: INR 2.74; PROTHROMBIN TIME 29.6 SECONDS (12.1-14.4)
== END ==
LOC: M LABDRAWC 09:02
PROVIDERS: ATTEND Family Medicine
DX: Z51.81 Encounter for therapeutic drug level monitoring (principal); Z79.01 Long term (current) use of anticoagulants; I26.99 Other pulmonary embolism without acute cor pulmonale; I82.401 Acute embolism and thrombosis of unspecified deep veins of right lower extremity

== ENCOUNTER → 2018-09-28 | Outpatient (REF) | payer OTHER ==
[2018-09-28 13:55] LABS: SEMEN APPEARANCE OPAQUE (OPAQUE); SEMEN VISCOSITY LIQUID (LIQUID); SEMEN VOLUME 2.7 ml (4.0-5.0); WBC CONCENTRATION >1 M/ml (<=1 M/ml)
== END ==
LOC: M LAB REF 12:43
PROVIDERS: ATTEND Obstetrics & Gynecology Reproductive Endocrinology
DX: N46.9 Male infertility, unspecified (principal)

== ENCOUNTER → 2018-09-30 | Outpatient (REF) | payer OTHER ==
[2018-09-30 12:19] LABS: INR 3.54; PROTHROMBIN TIME 36.3 SECONDS (12.1-14.4)
== END ==
LOC: M LABDRAWC 11:25 → M LAB REF 11:25
PROVIDERS: ATTEND Family Medicine
DX: I26.99 Other pulmonary embolism without acute cor pulmonale (principal); I82.401 Acute embolism and thrombosis of unspecified deep veins of right lower extremity

== ENCOUNTER → 2018-11-04 | Outpatient (REF) | payer OTHER ==
[2018-11-04 12:06] LABS: INR 3.3; PROTHROMBIN TIME 34.3 SECONDS (12.1-14.4)
== END ==
LOC: M LABDRAWC 11:12
PROVIDERS: ATTEND Family Medicine
DX: I26.99 Other pulmonary embolism without acute cor pulmonale (principal); I82.401 Acute embolism and thrombosis of unspecified deep veins of right lower extremity; Z79.01 Long term (current) use of anticoagulants

== ENCOUNTER → 2018-11-14 | Outpatient (CLI) | payer OTHER ==
--- NOTE | 2018-11-15 09:08 | REP ---
RIGHT HAND, FOUR VIEWS: There is no evidence of an acute fracture, dislocation or intrinsic bone disease. IMPRESSION: No fracture or dislocation. Electronically Signed by William Knight MD 11/15/2018 04:23 P
--- NOTE | 2018-11-15 09:08 | REP ---
RIGHT WRIST, FOUR VIEWS: There is no evidence of an acute fracture, dislocation or intrinsic bone disease. IMPRESSION: No fracture or dislocation. Electronically Signed by William Knight MD 11/15/2018 04:23 P
== END ==
LOC: M WUC 16:52
PROVIDERS: ATTEND Physician Assistant
DX: S60.221A Contusion of right hand, initial encounter (principal); S60.211A Contusion of right wrist, initial encounter; X58.XXXA Exposure to other specified factors, initial encounter; Y92.9 Unspecified place or not applicable

== ENCOUNTER → 2018-11-20 | Outpatient (CLI) | payer OTHER ==
--- NOTE | 2018-11-20 10:51 | REP ---
Bilateral lower extremity venous duplex ultrasound: Including reflux study. History: Localized swelling mass and lump. Personal history of venous thrombosis and embolism. Sonographic findings: The deep veins are anechoic and fully compressible from the groin to the popliteal fossa in both lower extremities on two-dimensional scanning. Color flow imaging is homogeneous. Spectral Doppler interrogation shows respiratory variation in flow normal manual augmentation of flow. There is no evidence of deep venous thrombosis on either side. Reflux exam. There is 2.6-second duration venous reflux in the mid greater saphenous vein on the right side. No other deep or superficial system reflux is noted on the right. The greater saphenous vein measures 5.3 mm in AP dimension proximally, 2.5 mm in AP dimension at midthigh, and 4.4 mm in AP dimension at the knee. The lesser saphenous vein measures 3.3 mm in AP dimension. On the left there is minimal reflux in the common femoral vein, greater than 0.5 seconds in duration. No other venous reflux is noted in the left lower extremity. The AP dimensions of the greater saphenous vein at the proximal, mid thigh, and the level are 4.9 mm, 4.4 mm, and 5.2 mm respectively. The lesser saphenous vein measures 2.2 mm. Impression: Minimal bilateral reflux. No evidence of DVT. Electronically Signed by Stephan Tatum MD 11/20/2018 03:30 P
== END ==
LOC: M RAD 08:39
PROVIDERS: ATTEND Surgery Vascular Surgery
DX: R22.41 Localized swelling, mass and lump, right lower limb (principal); Z86.718 Personal history of other venous thrombosis and embolism; Z86.711 Personal history of pulmonary embolism

== ENCOUNTER → 2018-12-07 | Outpatient (REF) | payer OTHER ==
[2018-12-07 12:05] LABS: INR 1.8; PROTHROMBIN TIME 20.6 SECONDS (11.8-14.0)
== END ==
LOC: M LABDRAWC 11:21
PROVIDERS: ATTEND Family Medicine
DX: I26.99 Other pulmonary embolism without acute cor pulmonale (principal); I82.401 Acute embolism and thrombosis of unspecified deep veins of right lower extremity

== ENCOUNTER → 2018-12-16 | Outpatient (REF) | payer OTHER ==
[2018-12-16 17:22] LABS: INR 1.78; PROTHROMBIN TIME 20.5 SECONDS (11.8-14.0)
== END ==
LOC: M LABDRAWC 16:16
PROVIDERS: ATTEND Family Medicine
DX: I26.99 Other pulmonary embolism without acute cor pulmonale (principal); I82.401 Acute embolism and thrombosis of unspecified deep veins of right lower extremity

== ENCOUNTER → 2019-01-06 | Outpatient (REF) | payer OTHER ==
[2019-01-06 11:40] LABS: INR 2.82; PROTHROMBIN TIME 29.6 SECONDS (11.8-14.0)
== END ==
LOC: M LABDRAWC 10:49
PROVIDERS: ATTEND Family Medicine
DX: I26.99 Other pulmonary embolism without acute cor pulmonale (principal); I82.401 Acute embolism and thrombosis of unspecified deep veins of right lower extremity

== ENCOUNTER → 2019-02-22 | Outpatient (REF) | payer OTHER ==
[2019-02-22 13:10] LABS: INR 3.02; PROTHROMBIN TIME 31.2 SECONDS (11.8-14.0)
== END ==
LOC: M LABDRAWC 11:11
PROVIDERS: ATTEND Family Medicine
DX: I82.401 Acute embolism and thrombosis of unspecified deep veins of right lower extremity (principal); I26.99 Other pulmonary embolism without acute cor pulmonale

== ENCOUNTER → 2019-05-17 | Outpatient (REF) | payer OTHER ==
[~2019-05-17] MED LIST changes: -RIZA10TA4 PO; +RIZA10TA58 PO
[2019-05-17 11:46] LABS: INR 2.88; PROTHROMBIN TIME 30.1 SECONDS (11.8-14.0)
== END ==
LOC: M LABDRAWC 08:45
PROVIDERS: ATTEND Family Medicine
DX: I82.401 Acute embolism and thrombosis of unspecified deep veins of right lower extremity (principal); I26.99 Other pulmonary embolism without acute cor pulmonale

== ENCOUNTER → 2019-06-03 | Outpatient (CLI) | payer OTHER ==
--- NOTE | 2019-06-03 08:45 | REP ---
Clinical: Shortness of breath Technique: AP and Lateral Findings: Chronic interstitial changes. Mediastinum and cardiac silhouette normal. No effusion. No pneumothorax. Skeletal structures stable. Impression: No Acute Infiltrate. Electronically Signed by Micheal Burdick MD 06/03/2019 08:36 A
== END ==
LOC: M WUC 08:22
PROVIDERS: ATTEND Family Medicine
DX: R06.02 Shortness of breath (principal); Z86.711 Personal history of pulmonary embolism

== ENCOUNTER → 2019-06-28 | Outpatient (REF) | payer OTHER ==
[2019-06-28 12:10] LABS: INR 2.38; PROTHROMBIN TIME 25.9 SECONDS (11.8-14.0)
== END ==
LOC: M LABDRAWC 11:18
PROVIDERS: ATTEND Family Medicine
DX: I82.401 Acute embolism and thrombosis of unspecified deep veins of right lower extremity (principal); I26.99 Other pulmonary embolism without acute cor pulmonale

== ENCOUNTER → 2019-07-15 | Outpatient (CLI) | payer OTHER ==
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
== END ==
LOC: M PAIN 14:15
PROVIDERS: ATTEND Family Medicine
DX: M25.562 Pain in left knee (principal); Z79.01 Long term (current) use of anticoagulants; Z79.891 Long term (current) use of opiate analgesic; Z79.899 Other long term (current) drug therapy; Z88.8 Allergy status to other drugs, medicaments and biological substances; Z87.891 Personal history of nicotine dependence

== ENCOUNTER → 2019-10-14 | Outpatient (REF) | payer OTHER ==
[2019-10-14 12:36] LABS: INR 2.47; PROTHROMBIN TIME 26.6 SECONDS (11.8-14.0)
== END ==
LOC: M LABDRAWC 11:54
PROVIDERS: ATTEND Family Medicine
DX: I82.401 Acute embolism and thrombosis of unspecified deep veins of right lower extremity (principal); I26.99 Other pulmonary embolism without acute cor pulmonale

== ENCOUNTER → 2019-10-19 | Outpatient (CLI) | payer OTHER ==
[~2019-10-19] MED LIST changes: -COUM1TAB14 PO; +COUM4TAB8 PO; -COUM7.5T PO; +COUM7.5T6 PO
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
== END ==
LOC: M PAIN 11:00 → M TMPAIN 11:00
PROVIDERS: ATTEND Family Medicine
DX: M25.562 Pain in left knee (principal); R91.8 Other nonspecific abnormal finding of lung field; Z79.891 Long term (current) use of opiate analgesic; Z79.899 Other long term (current) drug therapy; Z87.891 Personal history of nicotine dependence; Z88.8 Allergy status to other drugs, medicaments and biological substances

== ENCOUNTER → 2019-11-17 | Outpatient (CLI) | payer OTHER ==
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
== END ==
LOC: M PAIN 10:00
PROVIDERS: ATTEND Family Medicine
DX: M25.562 Pain in left knee (principal); G57.31 Lesion of lateral popliteal nerve, right lower limb

== ENCOUNTER → 2019-12-14 | Outpatient (CLI) | payer OTHER ==
[~2019-12-14] MED LIST changes: +PANT40TA29 PO; -PANT40TA3 PO
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
== END ==
LOC: M PAIN 11:30
PROVIDERS: ATTEND Family Medicine
DX: G57.31 Lesion of lateral popliteal nerve, right lower limb (principal); M25.562 Pain in left knee

== ENCOUNTER → 2020-03-13 | Outpatient (CLI) | payer OTHER ==
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
== END ==
LOC: M PAIN 11:30
PROVIDERS: ATTEND Family Medicine
DX: M79.2 Neuralgia and neuritis, unspecified (principal); K21.9 Gastro-esophageal reflux disease without esophagitis; I10 Essential (primary) hypertension; Z86.711 Personal history of pulmonary embolism; Z86.718 Personal history of other venous thrombosis and embolism; Q61.3 Polycystic kidney, unspecified; Z79.01 Long term (current) use of anticoagulants; Z79.891 Long term (current) use of opiate analgesic; Z79.899 Other long term (current) drug therapy; Z88.6 Allergy status to analgesic agent; Z88.8 Allergy status to other drugs, medicaments and biological substances; Z87.891 Personal history of nicotine dependence

== ENCOUNTER → 2020-03-13 | Outpatient (REF) | payer OTHER ==
[2020-03-13 12:40] LABS: INR 2.99; PROTHROMBIN TIME 31.8 SECONDS (12.5-14.3)
== END ==
LOC: M LABDRAWC 11:29
PROVIDERS: ATTEND Family Medicine
DX: I26.99 Other pulmonary embolism without acute cor pulmonale (principal); I82.401 Acute embolism and thrombosis of unspecified deep veins of right lower extremity

== ENCOUNTER → 2020-05-04 | Outpatient (REF) | payer OTHER ==
[2020-05-05 12:05] LABS: INR 1.54; PROTHROMBIN TIME 18.8 SECONDS (12.5-14.3)
== END ==
LOC: M LABDRAWC 11:13
PROVIDERS: ATTEND Family Medicine
DX: I26.99 Other pulmonary embolism without acute cor pulmonale (principal); I82.401 Acute embolism and thrombosis of unspecified deep veins of right lower extremity

== ENCOUNTER → 2020-05-18 | Outpatient (REF) | payer OTHER ==
[2020-05-19 12:38] LABS: INR 1.3; PROTHROMBIN TIME 16.5 SECONDS (12.5-14.3)
== END ==
LOC: M LABDRAWC 11:25
PROVIDERS: ATTEND Physician Assistant Medical
DX: I82.401 Acute embolism and thrombosis of unspecified deep veins of right lower extremity (principal); Z51.81 Encounter for therapeutic drug level monitoring

== ENCOUNTER → 2020-05-31 | Outpatient (REF) | payer OTHER ==
[2020-06-01 12:25] LABS: INR 2.01; PROTHROMBIN TIME 23.2 SECONDS (12.5-14.3)
== END ==
LOC: M LABDRAWC 11:11
PROVIDERS: ATTEND Physician Assistant Medical
DX: Z51.81 Encounter for therapeutic drug level monitoring (principal); I82.401 Acute embolism and thrombosis of unspecified deep veins of right lower extremity

== ENCOUNTER → 2020-06-13 | Outpatient (REF) | payer OTHER ==
[2020-06-14 13:19] LABS: INR 1.29; PROTHROMBIN TIME 16.3 SECONDS (12.5-14.3)
== END ==
LOC: M LABDRAWC 11:27
PROVIDERS: ATTEND Physician Assistant Medical
DX: I82.401 Acute embolism and thrombosis of unspecified deep veins of right lower extremity (principal); Z51.81 Encounter for therapeutic drug level monitoring

== ENCOUNTER → 2020-06-19 | Outpatient (CLI) | payer OTHER ==
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
== END ==
LOC: M PAIN 11:00
PROVIDERS: ATTEND Family Medicine
DX: G57.31 Lesion of lateral popliteal nerve, right lower limb (principal); G89.29 Other chronic pain; K21.9 Gastro-esophageal reflux disease without esophagitis; Z86.711 Personal history of pulmonary embolism; Z86.718 Personal history of other venous thrombosis and embolism; Z87.891 Personal history of nicotine dependence; Z88.6 Allergy status to analgesic agent; Z88.8 Allergy status to other drugs, medicaments and biological substances; Z79.01 Long term (current) use of anticoagulants; Z79.899 Other long term (current) drug therapy

== ENCOUNTER → 2020-06-19 | Outpatient (REF) | payer OTHER ==
[2020-06-19 11:56] LABS: INR 2.53; PROTHROMBIN TIME 27.9 SECONDS (12.5-14.3)
== END ==
LOC: M LABDRAWC 11:15
PROVIDERS: ATTEND Physician Assistant Medical
DX: I82.401 Acute embolism and thrombosis of unspecified deep veins of right lower extremity (principal); Z51.81 Encounter for therapeutic drug level monitoring

== ENCOUNTER → 2020-07-25 | Outpatient (REF) | payer OTHER ==
[2020-07-25 17:53] LABS: INR 3.17; PROTHROMBIN TIME 33.2 SECONDS (12.5-14.3)
[2020-07-25 18:18] LABS: ALBUMIN 4.2 GM/DL (3.2-5.2); ALT/SGPT 46 U/L (12-78); BILIRUBIN,TOTAL 0.5 MG/DL (0.2-1.0); BLOOD UREA NITROGEN 20 MG/DL (7-18); CALCIUM LEVEL 9.1 MG/DL (8.5-10.1); CARBON DIOXIDE LEVEL 29 MEQ/L (21-32); CHLORIDE LEVEL 102 MEQ/L (98-107); CHOLESTEROL LEVEL 215 MG/DL (<200); CHOLESTEROL RISK RATIO 6.515 (<5); CREATININE FOR GFR 1.15 MG/DL (0.70-1.30); GLOMERULAR FILTRATION RATE > 60.0 (>60); GLUCOSE, FASTING 83 MG/DL (70-100); HDL CHOLESTEROL 33 MG/DL (>40); LDL CHOLESTEROL 147 MG/DL (<100); NON-HDL-C 182 MG/DL; POTASSIUM SERUM 4.2 MEQ/L (3.5-5.1); SODIUM LEVEL 138 MEQ/L (136-145); TOTAL PROTEIN 7.4 GM/DL (6.4-8.2); TRIGLYCERIDES LEVEL 174 MG/DL (<150)
== END ==
LOC: M LABDRAWC 16:12
PROVIDERS: ATTEND Physician Assistant Medical
DX: E78.2 Mixed hyperlipidemia (principal); I82.401 Acute embolism and thrombosis of unspecified deep veins of right lower extremity; Z51.81 Encounter for therapeutic drug level monitoring

== ENCOUNTER → 2020-08-31 | Outpatient (CLI) | payer OTHER ==
[~2020-08-31] MED LIST changes: +OXYC-1 PO; +VENTAER INH; +WARF-22 PO; +WARF4TAB52 PO
== END ==
LOC: M LABSMTC 09:45
PROVIDERS: ATTEND Anesthesiology
DX: Z01.812 Encounter for preprocedural laboratory examination (principal); Z20.822 Contact with and (suspected) exposure to COVID-19

== ENCOUNTER → 2020-09-01 | Outpatient (CLI) | payer OTHER ==
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
== END ==
LOC: M PAIN 11:30
PROVIDERS: ATTEND Family Medicine
DX: M79.2 Neuralgia and neuritis, unspecified (principal); G89.29 Other chronic pain; K21.9 Gastro-esophageal reflux disease without esophagitis; Z86.711 Personal history of pulmonary embolism; Z86.718 Personal history of other venous thrombosis and embolism; Z87.891 Personal history of nicotine dependence; Z88.6 Allergy status to analgesic agent; Z88.8 Allergy status to other drugs, medicaments and biological substances; Z79.01 Long term (current) use of anticoagulants; Z79.899 Other long term (current) drug therapy

== ENCOUNTER 2020-09-05 10:29 | Day surgery (SDC) | payer OTHER ==
[~2020-09-05] VITALS: Ht 198.1 cm; Wt 126.3 kg
[~2020-09-05 10:29] MED LIST changes: +NS 1,000 ML IV ONE
[2020-09-05] MEDS ORDERED: fentaNYL 100 MCG/2 ML INJECTION (J3010) As Ordered ONE (11:43)
[2020-09-05] MEDS ORDERED: LIDOCAINE 2% 100MG/5ML SDV (FOR ANES.) As Ordered ONE (11:44)
[2020-09-05] MEDS ORDERED: propofoL 200 MG/20 ML VIAL As Ordered ONE ×2 (11:44→11:46)
[2020-09-05 12:10] VITALS: BP 150/95
--- NOTE | 2020-09-05 12:10 | ROOR ---
Patient Name: Leopoldo Burns Procedure Date: 09/05/2020 11:29 AM Date of : 1980 Age: 40 Room: [facility] Gender: Male Note Status: Finalized Procedure: Upper GI endoscopy Indications: Heartburn, Unexplained chest pain Providers: Nash Collins MD Referring MD: Janie Baxter MD Requesting Provider: Medicines: Monitored Anesthesia Care Complications: No immediate complications. Procedure: Pre-Anesthesia Assessment: - Prior to the procedure, a History and Physical was performed, and patient medications and allergies were reviewed. The patient is competent. The risks and benefits of the procedure and the sedation options and risks were discussed with the patient. All questions were answered and informed consent was obtained. Patient identification and proposed procedure were verified by the physician, the nurse and the anesthesiologist in the procedure room. Mental Status Examination: alert and oriented. Airway Examination: normal oropharyngeal airway and neck mobility. Respiratory Examination: clear to auscultation. CV Examination: normal. Prophylactic Antibiotics: The patient does not require prophylactic antibiotics. Prior Anticoagulants: The patient has taken no previous anticoagulant or antiplatelet agents. ASA Grade Assessment: II - A patient with mild systemic disease. After reviewing the risks and benefits, the patient was deemed in satisfactory condition to undergo the procedure. The anesthesia plan was to use monitored anesthesia care (MAC). Immediately prior to administration of medications, the patient was re-assessed for adequacy to receive sedatives. The heart rate, respiratory rate, oxygen saturations, blood pressure, adequacy of pulmonary ventilation, and response to care were monitored throughout the procedure. The physical status of the patient was re-assessed after the procedure. The Endoscope was introduced through the mouth, and advanced to the second part of duodenum. The upper GI endoscopy was accomplished without difficulty. The patient tolerated the procedure well. Findings: The Z-line was irregular and was found in the distal esophagus. Scattered mild inflammation characterized by erythema and granularity was found in the gastric antrum. A few small sessile fundic gland polyps with no bleeding and no stigmata of recent bleeding were found in the gastric fundus and in the gastric body. The duodenal bulb, second portion of the duodenum and third portion of the duodenum were normal. Impression: - Z-line irregular, in the distal esophagus. - Gastritis. - A few fundic gland polyps. - Normal duodenal bulb, second portion of the duodenum and third portion of the duodenum. - No specimens collected. Recommendation: - Patient has a contact number available for emergencies. The signs and symptoms of potential delayed complications were discussed with the patient. Return to normal activities tomorrow. Written discharge instructions were provided to the patient. - Anti-acid reflux diet -- small meals, sit upright atleast 1 hour after meals, avoid fatty/ oily foods and avoid foods that cause reflux. - Continue present medications. - Follow an antireflux regimen. - Repeat upper endoscopy in 5 years depending on the symptoms and clinical response. - Return to primary care physician. Procedure Code(s): --- Professional --- 85036, Esophagogastroduodenoscopy, flexible, transoral; diagnostic, including collection of specimen(s) by brushing or washing, when performed (separate procedure) Diagnosis Code(s): --- Professional --- K22.8, Other specified diseases of esophagus K29.70, Gastritis, unspecified, without bleeding K31.7, Polyp of stomach and duodenum R12, Heartburn R07.9, Chest pain, unspecified CPT copyright 2019 [employer]. All rights reserved. The codes documented in this report are preliminary and upon wallet assembler review may be revised to meet current compliance requirements. Nash Collins MD Nash Collins MD 09/05/2020 12:09:46 PM Electronically signed by Nash Collins MD Number of Addenda: 0 Note Initiated On: 09/05/2020 11:29 AM Estimated Blood Loss: Estimated blood loss: none.
== END 2020-09-05 12:17 | disposition home or self-care (01) ==
LOC: M OPP 10:29
PROVIDERS: ATTEND Internal Medicine Gastroenterology
DX: K22.8 Other specified diseases of esophagus (principal); K29.70 Gastritis, unspecified, without bleeding; K31.7 Polyp of stomach and duodenum; R12 Heartburn; R07.9 Chest pain, unspecified; Z79.01 Long term (current) use of anticoagulants; Z79.899 Other long term (current) drug therapy; Z88.8 Allergy status to other drugs, medicaments and biological substances; Z87.891 Personal history of nicotine dependence
CPT/HCPCS: 43235; J3010

== ENCOUNTER → 2020-09-29 | Outpatient (CLI) | payer OTHER ==
[~2020-09-29] MED LIST changes: -NS 1,000 ML IV ONE
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
== END ==
LOC: M PAIN 11:30
PROVIDERS: ATTEND Family Medicine
DX: M79.2 Neuralgia and neuritis, unspecified (principal); I10 Essential (primary) hypertension; K21.9 Gastro-esophageal reflux disease without esophagitis; Z86.711 Personal history of pulmonary embolism; Z86.718 Personal history of other venous thrombosis and embolism; Q61.3 Polycystic kidney, unspecified; Z87.891 Personal history of nicotine dependence; Z79.891 Long term (current) use of opiate analgesic; Z79.899 Other long term (current) drug therapy; Z88.6 Allergy status to analgesic agent; Z88.8 Allergy status to other drugs, medicaments and biological substances; Z79.01 Long term (current) use of anticoagulants

== ENCOUNTER → 2020-12-15 | Outpatient (CLI) | payer OTHER ==
[~2020-12-15] MED LIST changes: +GABA-283 PO; -GABA-845 PO
--- NOTE | 2020-12-15 10:56 | REP ---
INDICATION: PKD W/ LIVER/PANCREAS CYSTS. COMPARISON: None. TECHNIQUE: Transabdominal ultrasound FINDINGS: Multiple ultrasonographic images of the liver shows numerous anechoic structures of various sizes and shapes too numerous to count or individually assess all consistent with cysts. The largest on the right measures 3.3 x 3.2 x 5.1 cm and the largest on the left measures 5.8 x 2.5 x 2.9 cm. No solid masses are identified. There is no intrahepatic or extrahepatic ductal dilatation. The common bile duct measures 5 mm. Multiple ultrasonographic images of the gallbladder show no abnormal echogenic foci within the gallbladder lumen, gallbladder wall thickening, or pericholecystic edema. The imaged portion of the pancreas is within normal limits. The spleen measures 13.7 x 13.4 x5.4 cm. The volumetric index calculation is 991. No perisplenic abnormalities are noted. The right kidney measures 14.1 x 7.1 x 5.6 cm. The renal cortical echotexture is within normal limits. Corticomedullary differentiation is preserved. There is no hydronephrosis. There are multiple anechoic structures throughout the renal cortex which exhibit posterior wall enhancement and increased through transmission, however, some have irregular walton. In the lower pole there is a 1.5 x 1.6 x 1.6 cm sized solid appearing nodule.. The left kidney measures 15.7 x 5.8 x 6.2 cm. The renal cortical echotexture is within normal limits. Corticomedullary differentiation is preserved. There is no hydronephrosis. There are numerous anechoic structures seen which exhibit posterior wall enhancement and increased through transmission but some somewhat complex appearing having irregular walton.. The imaged portion of the abdominal aorta is within normal limits. There is no evidence of free fluid. IMPRESSION: 1. Multiple hepatic cysts. 2. Bilateral renal cysts increasing in size and number and variation compared to the renal ultrasound of 09/05/2017. I cannot rule out a solid right renal lesion. Pre and post gadolinium enhanced renal MRI is recommended. 3. Splenomegaly. <Electronically signed by Yash Vang > 12/15/20 [id number]
== END ==
LOC: M RAD 09:42
PROVIDERS: ATTEND Nurse Practitioner Family
DX: Q61.2 Polycystic kidney, adult type (principal); K76.89 Other specified diseases of liver; R16.1 Splenomegaly, not elsewhere classified

== ENCOUNTER → 2020-12-19 | Outpatient (CLI) | payer OTHER ==
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
== END ==
LOC: M PAIN 13:45
PROVIDERS: ATTEND Family Medicine
DX: M79.2 Neuralgia and neuritis, unspecified (principal); G89.29 Other chronic pain; K21.9 Gastro-esophageal reflux disease without esophagitis; Z86.711 Personal history of pulmonary embolism; Z86.718 Personal history of other venous thrombosis and embolism; Z88.6 Allergy status to analgesic agent; Z88.8 Allergy status to other drugs, medicaments and biological substances; Z79.01 Long term (current) use of anticoagulants; Z79.899 Other long term (current) drug therapy

== ENCOUNTER → 2021-01-11 | Outpatient (REF) | payer OTHER ==
[~2021-01-11] MED LIST changes: -DOXY100C; +DOXY100C3
[2021-01-11 12:40] LABS: BLOOD UREA NITROGEN 18 MG/DL (7-18); CREATININE FOR GFR 1.27 MG/DL (0.70-1.30); GLOMERULAR FILTRATION RATE > 60.0 (>60)
== END ==
LOC: M LABDRAWC 11:18
PROVIDERS: ATTEND Nurse Practitioner Family
DX: N18.2 Chronic kidney disease, stage 2 (mild) (principal)

== ENCOUNTER → 2021-01-12 | Outpatient (CLI) | payer OTHER ==
[~2021-01-12] MED LIST changes: +PROHANCE 279.3MG/ML 15ML VIAL As Ordered ONE; +PROHANCE 279.3MG/ML 5ML VIAL As Ordered ONE
--- NOTE | 2021-01-12 13:43 | REP ---
INDICATION: NEOPLASM, POLYCYSTIC KIDNEY. COMPARISON: Comparison sonography is from December 15, 2020. Comparison CT study images are from December 14, 2019.. TECHNIQUE: Axial and coronal T1 and T2 weighted sequences include spin echo, fast spin echo, in and out of phase, and dynamically acquired sequential postcontrast T1 fat sat images. Gadolinium enhancement dose is 20 mL of intravenous ProHance. FINDINGS: There are innumerable bilateral renal cortical cysts and innumerable widespread is cyst formation is seen within the liver. This is unchanged from comparison sonography and CT study. There is no solid renal Lat mass lesion observed. Several of the cysts on both sides contain proteinaceous T1 hyperintense material as expected. No mass lesion or septal or mural enhancement is seen on postcontrast images in any of the renal cysts. No splenic cyst or pancreatic cyst is appreciated. Normal adrenal glands are observed. Inclusive of the cortical cysts, left renal length measurement is 15.3 cm and right renal length measurement is 13.2 cm. No hydronephrosis is seen. IMPRESSION: Findings consistent with adult polycystic kidney disease. Numerous hepatic cysts are also noted. No renal mass lesion is observed. <Electronically signed by Parveen Tatum > 01/12/21 1758
== END ==
LOC: M RAD 10:57
PROVIDERS: ATTEND Nurse Practitioner Family
DX: D41.01 Neoplasm of uncertain behavior of right kidney (principal); Q61.2 Polycystic kidney, adult type; K76.89 Other specified diseases of liver
CPT/HCPCS: 74183; A9576

== ENCOUNTER → 2021-08-23 | Outpatient (CLI) | payer OTHER, SELFPAY ==
[~2021-08-23] MED LIST changes: +LOSA50TA28 PO; -LOSA50TA88 PO; -PROHANCE 279.3MG/ML 15ML VIAL As Ordered ONE; -PROHANCE 279.3MG/ML 5ML VIAL As Ordered ONE
== END ==
LOC: M RAD 12:54
PROVIDERS: ATTEND Internal Medicine Critical Care Medicine
DX: R06.00 Dyspnea, unspecified (principal)
CPT/HCPCS: 71046; 78582; A9540; A9567

== ENCOUNTER 2021-08-29 18:36 | Emergency (ER) | payer OTHER ==
[~2021-08-29] VITALS: Ht 198.1 cm; Wt 136.4 kg
[2021-08-29 19:21] LABS: BASO # 0.1 10^3/uL (0.0-0.2); BASO % 1.2 % (0.0-1.0); EOS # 0.2 10^3/uL (0.0-0.5); EOS % 2.6 % (0.0-3.0); HEMATOCRIT 43.3 % (42.0-52.0); HEMOGLOBIN 15.2 g/dl (13.5-17.5); LYMPH # 1.5 10^3/uL (1.5-5.0); LYMPH % 20.5 % (24.0-44.0); MEAN CORPUSCULAR HEMOGLOBIN 31.1 pg (27.0-33.0); MEAN CORPUSCULAR HGB CONC 35.1 g/dl (32.0-36.5); MEAN CORPUSCULAR VOLUME 88.5 fl (80.0-96.0); MONO # 0.5 10^3/uL (0.0-0.8); MONO % 6.3 % (2.0-8.0); NEUTROPHILS % 69.1 % (36.0-66.0); PLATELET COUNT, AUTOMATED 223 10^3/uL (150-450); RED BLOOD COUNT 4.89 10^6/uL (4.30-6.10); WHITE BLOOD COUNT 7.3 10^3/uL (4.0-10.0)
[2021-08-29] MEDS ORDERED: ASPIRIN 81 MG CHEW TABLET PO ONE (19:25)
[2021-08-29] MEDS: NITROGLYCERIN 0.4 MG SUBL TABLET SL PRN ×2 (19:31→19:58)
[2021-08-29 19:49] LABS: CK-MB VALUE MASS < 1.0 NG/ML (<3.6); CPK CREATINE PHOSPHOKINASE 98 U/L (39-308); MB/CK RELATIVE INDEX 1.02 (< OR =4)
[2021-08-29 19:58] VITALS: BP 160/72
[2021-08-29] MEDS ORDERED: NS 1,000 ML IV SCH (20:00)
[2021-08-29 20:04] LABS: ALBUMIN 4.1 GM/DL (3.2-5.2); ALT/SGPT 45 U/L (12-78); BILIRUBIN,DIRECT 0.1 MG/DL (0.0-0.2); BILIRUBIN,TOTAL 0.4 MG/DL (0.2-1.0); BLOOD UREA NITROGEN 16 MG/DL (7-18); CALCIUM LEVEL 9.2 MG/DL (8.5-10.1); CARBON DIOXIDE LEVEL 29 MEQ/L (21-32); CHLORIDE LEVEL 105 MEQ/L (98-107); CREATININE FOR GFR 1.23 MG/DL (0.70-1.30); GLOMERULAR FILTRATION RATE > 60.0 (>60); GLUCOSE, FASTING 115 MG/DL (70-100); LIPASE 149 U/L (73-393); NT-PRO BNP 64 PG/ML (<125); POTASSIUM SERUM 4.4 MEQ/L (3.5-5.1); SODIUM LEVEL 142 MEQ/L (136-145); TOTAL PROTEIN 7.4 GM/DL (6.4-8.2)
[2021-08-29] MEDS ORDERED: ISOVUE-370 76% 100ML VIAL As Ordered ONE (20:36)
[2021-08-29 20:48] LABS: CK-MB VALUE MASS < 1.0 NG/ML (<3.6); CPK CREATINE PHOSPHOKINASE 89 U/L (39-308); MB/CK RELATIVE INDEX 1.12 (< OR =4)
[2021-08-29] MEDS ORDERED: MORPHINE 4 MG/ML 1ML VIAL/SYRINGE IV ONE (21:30)
[2021-08-29] MEDS ORDERED: PERCOCET 5MG/325MG TAB PO ONE (21:40)
[2021-08-29 22:45] VITALS: BP 140/92
[2021-08-29] MEDS ORDERED: OXYCODONE/APAP 5MG/325MG(BULK FOR ED) 1 TABLET PO ONE (22:50)
== END 2021-08-29 23:40 | disposition home or self-care (01) ==
LOC: M ED 18:36
DX: R07.89 Other chest pain (principal); I10 Essential (primary) hypertension; N28.1 Cyst of kidney, acquired; K59.00 Constipation, unspecified; G43.909 Migraine, unspecified, not intractable, without status migrainosus; Z86.711 Personal history of pulmonary embolism; Z86.718 Personal history of other venous thrombosis and embolism; Z82.49 Family history of ischemic heart disease and other diseases of the circulatory system; K76.89 Other specified diseases of liver; Z79.899 Other long term (current) drug therapy; Z88.6 Allergy status to analgesic agent; Z88.8 Allergy status to other drugs, medicaments and biological substances
CPT/HCPCS: 71045; 71275; 80048; 80076; 82550; 82553; 83690; 83880; 84443; 84484; 85025; 93005; 93041; 94760; 96360; 96361; 99285; Q9967

== ENCOUNTER → 2021-09-25 | Outpatient (REF) | payer OTHER ==
[2021-09-25 11:44] LABS: HEMATOCRIT 41.3 % (42.0-52.0); HEMOGLOBIN 14.7 g/dl (13.5-17.5); MEAN CORPUSCULAR HEMOGLOBIN 32.1 pg (27.0-33.0); MEAN CORPUSCULAR HGB CONC 35.6 g/dl (32.0-36.5); MEAN CORPUSCULAR VOLUME 90.2 fl (80.0-96.0); PLATELET COUNT, AUTOMATED 204 10^3/uL (150-450); RED BLOOD COUNT 4.58 10^6/uL (4.30-6.10); WHITE BLOOD COUNT 6.2 10^3/uL (4.0-10.0)
[2021-09-25 12:16] LABS: BLOOD UREA NITROGEN 14 MG/DL (7-18); CALCIUM LEVEL 9.4 MG/DL (8.5-10.1); CARBON DIOXIDE LEVEL 26 MEQ/L (21-32); CHLORIDE LEVEL 103 MEQ/L (98-107); CREATININE FOR GFR 1.05 MG/DL (0.70-1.30); FERRITIN 204 NG/ML (26-388); GLOMERULAR FILTRATION RATE > 60.0 (>60); GLUCOSE, FASTING 123 MG/DL (70-100); IRON (FE) 100 UG/DL (65-175); NT-PRO BNP 41 PG/ML (<125); PERCENT SATURATION 30.1 % (19.7-50.0); POTASSIUM SERUM 3.8 MEQ/L (3.5-5.1); SODIUM LEVEL 138 MEQ/L (136-145); TOTAL IRON BINDING CAPACITY 332 UG/DL (250-450)
== END ==
LOC: M LABDRAWC 11:32
PROVIDERS: ATTEND Internal Medicine Critical Care Medicine
DX: I26.02 Saddle embolus of pulmonary artery with acute cor pulmonale (principal); I27.82 Chronic pulmonary embolism; I50.810 Right heart failure, unspecified

== ENCOUNTER → 2021-10-26 | Outpatient (REF) | payer OTHER ==
[2021-10-26 15:06] LABS: HEMATOCRIT 43.4 % (42.0-52.0); MEAN CORPUSCULAR HEMOGLOBIN 31.9 pg (27.0-33.0); MEAN CORPUSCULAR HGB CONC 34.6 g/dl (32.0-36.5); MEAN CORPUSCULAR VOLUME 92.3 fl (80.0-96.0); PLATELET COUNT, AUTOMATED 188 10^3/uL (150-450); WHITE BLOOD COUNT 6.3 10^3/uL (4.0-10.0)
[2021-10-26 15:18] LABS: INR 2.28; PROTHROMBIN TIME 25.5 SECONDS (12.7-14.5)
[2021-10-26 15:19] LABS: PARTIAL THROMBOPLASTIN TIME 55.2 SECONDS (25.9-37.0)
[2021-10-26 15:24] LABS: BLOOD UREA NITROGEN 12 MG/DL (7-18); CALCIUM LEVEL 9.3 MG/DL (8.5-10.1); CARBON DIOXIDE LEVEL 29 MEQ/L (21-32); CHLORIDE LEVEL 108 MEQ/L (98-107); CREATININE FOR GFR 1.07 MG/DL (0.70-1.30); GLOMERULAR FILTRATION RATE > 60.0 (>60); GLUCOSE, FASTING 106 MG/DL (70-100); NT-PRO BNP 18 PG/ML (<125); POTASSIUM SERUM 4.4 MEQ/L (3.5-5.1); SODIUM LEVEL 143 MEQ/L (136-145)
== END ==
LOC: M LABDRAWC 14:27
PROVIDERS: ATTEND Internal Medicine Critical Care Medicine
DX: I50.9 Heart failure, unspecified (principal)

== ENCOUNTER → 2021-12-21 | Outpatient (CLI) | payer OTHER | LOC: M PAIN 10:00 | PROVIDERS: ATTEND Anesthesiology | DX: R07.9 Chest pain, unspecified (principal); M79.2 Neuralgia and neuritis, unspecified; Z87.442 Personal history of urinary calculi; K21.9 Gastro-esophageal reflux disease without esophagitis; Q61.3 Polycystic kidney, unspecified; I10 Essential (primary) hypertension; Z86.711 Personal history of pulmonary embolism; Z86.718 Personal history of other venous thrombosis and embolism; Q44.6 Cystic disease of liver; Z79.01 Long term (current) use of anticoagulants; Z79.899 Other long term (current) drug therapy; Z88.6 Allergy status to analgesic agent; Z88.8 Allergy status to other drugs, medicaments and biological substances ==

== ENCOUNTER → 2022-02-12 | Outpatient (CLI) | payer OTHER ==
[2022-02-12 19:29] LABS: HEMATOCRIT 43.6 % (42.0-52.0); MEAN CORPUSCULAR HEMOGLOBIN 31.5 pg (27.0-33.0); MEAN CORPUSCULAR HGB CONC 34.4 g/dl (32.0-36.5); MEAN CORPUSCULAR VOLUME 91.6 fl (80.0-96.0); PLATELET COUNT, AUTOMATED 181 10^3/uL (150-450); RED BLOOD COUNT 4.76 10^6/uL (4.30-6.10)
[2022-02-12 19:42] LABS: INR 1.16; PROTHROMBIN TIME 15.2 SECONDS (12.7-14.5)
[2022-02-12 22:01] LABS: ALBUMIN 4.1 GM/DL (3.2-5.2); ALT/SGPT 37 U/L (12-78); BILIRUBIN,DIRECT 0.1 MG/DL (0.0-0.2); BILIRUBIN,TOTAL 0.5 MG/DL (0.2-1.0); BLOOD UREA NITROGEN 20 MG/DL (7-18); CALCIUM LEVEL 9.2 MG/DL (8.5-10.1); CARBON DIOXIDE LEVEL 28 MEQ/L (21-32); CHLORIDE LEVEL 103 MEQ/L (98-107); CREATININE FOR GFR 1.07 MG/DL (0.70-1.30); DIGOXIN LEVEL 0.2 NG/ML (0.5-2.0); FREE T4 0.96 NG/DL (0.76-1.46); GLOMERULAR FILTRATION RATE > 60.0 (>60); GLUCOSE, FASTING 114 MG/DL (70-100); HEPATITIS B SURFACE ANTIBODY POSITIVE (POSITIVE); HEPATITIS B SURFACE ANTIGEN NEGATIVE (NEGATIVE); HEPATITIS C VIRUS ABY INDEX < 0.0 INDEX (<0.8); HIV 1&2 SCREEN CENTAUR NEGATIVE (NEGATIVE); IRON (FE) 93 UG/DL (65-175); NT-PRO BNP 6 PG/ML (<125); PERCENT SATURATION 23.9 % (19.7-50.0); POTASSIUM SERUM 4.2 MEQ/L (3.5-5.1); SODIUM LEVEL 135 MEQ/L (136-145); TOTAL IRON BINDING CAPACITY 389 UG/DL (250-450); TOTAL PROTEIN 7.8 GM/DL (6.4-8.2)
== END ==
LOC: M LAB 18:35
PROVIDERS: ATTEND Internal Medicine Cardiovascular Disease
DX: I27.24 Chronic thromboembolic pulmonary hypertension (principal); R06.02 Shortness of breath

== ENCOUNTER → 2023-01-10 | Outpatient (CLI) | payer OTHER ==
[~2023-01-10] MED LIST changes: -GABA-283 PO; +GABA-284 PO
[2023-01-10 14:14] LABS: APPEARANCE, URINE CLEAR (CLEAR); BACTERIA, URINE AUTO NEGATIVE (NEGATIVE); BILIRUBIN, URINE AUTO NEGATIVE (NEGATIVE); BLOOD, URINE BLOOD 1+ (NEGATIVE); COLOR, URINE YELLOW (YELLOW); GLUCOSE, URINE (UA) AUTO NEGATIVE (NEGATIVE); KETONE, URINE AUTO NEGATIVE (NEGATIVE); LEUKOCYTE ESTERASE, URINE AUTO NEGATIVE (NEGATIVE); NITRITE, URINE AUTO NEGATIVE (NEGATIVE); PROTEIN, URINE AUTO NEGATIVE (NEGATIVE); RBC, URINE AUTO 1 /HPF (0-3); SPECIFIC GRAVITY URINE AUTO 1.016 (1.002-1.035); SQUAMOUS EPITHELIAL CELL UR AU 0 /HPF (0-6); UROBILINOGEN, URINE AUTO 0.2 mg/dL (0.0-2.0); WBC, URINE AUTO 1 /HPF (0-3)
[2023-01-10 14:14] LABS: BASO # 0.1 10^3/uL (0.0-0.2); EOS # 0.2 10^3/uL (0.0-0.5); EOS % 3.2 % (0.0-3.0); HEMATOCRIT 38.8 % (42.0-52.0); HEMOGLOBIN 13.4 g/dl (13.5-17.5); LYMPH % 16.2 % (24.0-44.0); MEAN CORPUSCULAR HEMOGLOBIN 31.1 pg (27.0-33.0); MEAN CORPUSCULAR HGB CONC 34.5 g/dl (32.0-36.5); MONO # 0.3 10^3/uL (0.0-0.8); MONO % 5.6 % (2.0-8.0); NEUTROPHILS # 4.4 10^3/uL (1.5-8.5); NEUTROPHILS % 73.7 % (36.0-66.0); PLATELET COUNT, AUTOMATED 139 10^3/uL (150-450); RED BLOOD COUNT 4.31 10^6/uL (4.30-6.10); WHITE BLOOD COUNT 5.9 10^3/uL (4.0-10.0)
[2023-01-10 14:41] LABS: BLOOD UREA NITROGEN 15 MG/DL (9-23); CALCIUM LEVEL 8.6 MG/DL (8.5-10.1); CARBON DIOXIDE LEVEL 27 MMOL/L (20-31); CHLORIDE LEVEL 108 MMOL/L (98-107); CREATININE FOR GFR 1.08 MG/DL (0.70-1.30); GLOMERULAR FILTRATION RATE > 60.0 (>60); GLUCOSE, FASTING 126 MG/DL (60-100); SODIUM LEVEL 142 MMOL/L (136-145)
== END ==
LOC: M LAB 13:48
PROVIDERS: ATTEND Urology
DX: Z01.812 Encounter for preprocedural laboratory examination (principal)

== ENCOUNTER → 2023-04-08 | Outpatient (CLI) | payer OTHER | LOC: M PLALAB 13:35 | PROVIDERS: ATTEND Nurse Practitioner Family | DX: J20.9 Acute bronchitis, unspecified (principal) ==

== ENCOUNTER → 2023-06-20 | Outpatient (REF) | payer OTHER ==
[2023-06-20 11:07] LABS: HEMATOCRIT 43.9 % (42.0-52.0); HEMOGLOBIN 15.3 g/dl (13.5-17.5); MEAN CORPUSCULAR HEMOGLOBIN 31.5 pg (27.0-33.0); MEAN CORPUSCULAR HGB CONC 34.9 g/dl (32.0-36.5); MEAN CORPUSCULAR VOLUME 90.5 fl (80.0-96.0); PLATELET COUNT, AUTOMATED 225 10^3/uL (150-450); RED BLOOD COUNT 4.85 10^6/uL (4.30-6.10); WHITE BLOOD COUNT 7.8 10^3/uL (4.0-10.0)
== END ==
LOC: M LABWUC 09:33
PROVIDERS: ATTEND Physician Assistant Medical
DX: K62.5 Hemorrhage of anus and rectum (principal)

== ENCOUNTER 2023-07-25 07:24 | Day surgery (SDC) | payer OTHER ==
[~2023-07-25] VITALS: Ht 198.1 cm; Wt 97.1 kg
[~2023-07-25 07:24] MED LIST changes: +NS 1,000 ML IV ONE
[2023-07-25] MEDS ORDERED: propofoL 200 MG/20 ML VIAL As Ordered ONE (09:22)
[2023-07-25 10:27] VITALS: BP 140/85; TEMP 96.1; O2SAT 97
== END 2023-07-25 10:43 | disposition home or self-care (01) ==
LOC: M OPP 07:24
PROVIDERS: ATTEND Internal Medicine Gastroenterology
DX: K64.8 Other hemorrhoids (principal); D12.6 Benign neoplasm of colon, unspecified; K57.30 Diverticulosis of large intestine without perforation or abscess without bleeding; K92.1 Melena; G47.30 Sleep apnea, unspecified; Z79.01 Long term (current) use of anticoagulants; Z79.899 Other long term (current) drug therapy; Z88.5 Allergy status to narcotic agent; Z88.6 Allergy status to analgesic agent; Z88.8 Allergy status to other drugs, medicaments and biological substances

== ENCOUNTER → 2024-01-02 | Outpatient (REF) | payer OTHER ==
[~2024-01-02] MED LIST changes: -NS 1,000 ML IV ONE
[2024-01-02 18:11] LABS: ALBUMIN 3.8 G/DL (3.2-5.2); ALKALINE PHOSPHATASE 73 U/L (46-116); ALT/SGPT 45 U/L (7.0-40); AST/SGOT 24 U/L (<34); BILIRUBIN,TOTAL 0.5 MG/DL (0.3-1.2); BLOOD UREA NITROGEN 12 MG/DL (9-23); CALCIUM LEVEL 9.1 MG/DL (8.5-10.1); CARBON DIOXIDE LEVEL 29 MMOL/L (20-31); CHLORIDE LEVEL 104 MMOL/L (98-107); CHOLESTEROL LEVEL 212 MG/DL (<200); CHOLESTEROL RISK RATIO 5.66 (<5); CREATININE FOR GFR 1.01 MG/DL (0.70-1.30); GLOMERULAR FILTRATION RATE > 60.0 (>60); GLUCOSE, FASTING 143 MG/DL (60-100); HDL CHOLESTEROL 37.4 MG/DL (>40); LDL CHOLESTEROL 127.4 MG/DL (<100); NON-HDL-C 174.6 MG/DL; POTASSIUM SERUM 4.8 MMOL/L (3.5-5.1); SODIUM LEVEL 140 MMOL/L (136-145); TOTAL PROTEIN 6.8 G/DL (5.7-8.2); TRIGLYCERIDES LEVEL 236 MG/DL (<150)
== END ==
LOC: M LABDRAWC 16:34
PROVIDERS: ATTEND Nurse Practitioner Family
DX: I10 Essential (primary) hypertension (principal); E78.2 Mixed hyperlipidemia

== ENCOUNTER → 2024-01-14 | Outpatient (REF) | payer OTHER ==
[2024-01-14 18:46] LABS: HEMOGLOBIN A1c 6.1 % (4.0-6.0)
== END ==
LOC: M LABDRWAD 17:17
PROVIDERS: ATTEND Nurse Practitioner Family
DX: R73.01 Impaired fasting glucose (principal)

== ENCOUNTER → 2024-07-08 | Outpatient (REF) | payer OTHER ==
[~2024-07-08] MED LIST changes: -ALIG4CAP PO; +ALIG4CAP3 PO
== END ==
LOC: M LAB REF 09:22
PROVIDERS: ATTEND Registered Nurse
DX: Z95.818 Presence of other cardiac implants and grafts (principal)

== ENCOUNTER 2024-07-21 12:34 | Day surgery (SDC) | payer OTHER ==
[~2024-07-21] VITALS: Ht 198.1 cm; Wt 131.9 kg
[~2024-07-21 12:34] MED LIST changes: +ELIQ5TAB PO; +IVAB5TAB PO
[2024-07-21] MEDS ORDERED: propofoL 200 MG/20 ML VIAL As Ordered ONE (12:35)
[2024-07-21] MEDS ORDERED: LIDOCAINE 2% 100MG/5ML SDV (FOR ANES.) As Ordered ONE (12:35)
[2024-07-21] MEDS ORDERED: LIDOCAINE 1% SDV 5ML VIAL SC PRN (12:55)
[2024-07-21] MEDS ORDERED: fentaNYL 100 MCG/2 ML INJECTION As Ordered ONE (13:23)
[2024-07-21] MEDS ORDERED: MIDAZOLAM INJ 2MG/2ML VIAL As Ordered ONE (13:23)
[2024-07-21] MEDS: LR 1,000 ML IV SCH (13:35)
[2024-07-21] MEDS: ceFAZolin SODIUM 3 GM VIAL As Ordered ONE (13:48)
[2024-07-21] MEDS: LIDOCAINE 1% MDV 20ML VIAL As Ordered ONE (13:50)
[2024-07-21] MEDS: ceFAZolin SOD 3 GM in DEXTROSE 5% (D5W) MINI-BAG PLU 1... IV ONE (14:25)
[2024-07-21 14:40] VITALS: BP 147/94; TEMP 97; O2SAT 98
== END 2024-07-21 14:52 | disposition home or self-care (01) ==
LOC: M SDC 12:34
PROVIDERS: ATTEND Internal Medicine Cardiovascular Disease
DX: Z95.818 Presence of other cardiac implants and grafts (principal); R00.0 Tachycardia, unspecified; I10 Essential (primary) hypertension; Z79.01 Long term (current) use of anticoagulants; R94.31 Abnormal electrocardiogram [ECG] [EKG]; I27.24 Chronic thromboembolic pulmonary hypertension; Z88.8 Allergy status to other drugs, medicaments and biological substances; Z88.5 Allergy status to narcotic agent; Z79.899 Other long term (current) drug therapy; K21.9 Gastro-esophageal reflux disease without esophagitis
CPT/HCPCS: 33286; J0690; J2250; J3010

== ENCOUNTER 2024-12-30 10:18 | Emergency (ER) | payer OTHER ==
[~2024-12-30] VITALS: Ht 198.1 cm; Wt 127.0 kg
[~2024-12-30 10:18] MED LIST changes: +CLOM50TA31 PO; -CLOM50TA9 PO; +SENN-225 PO; -SENO8.6T5 PO
[2024-12-30 11:36] LABS: PLATELET COUNT, AUTOMATED 221 10^3/uL (150-450)
[2024-12-30 11:39] LABS: ALT/SGPT 52.0 U/L (7.0-40); AST/SGOT 42.0 U/L (<34); CALCIUM LEVEL 9.4 MG/DL (8.5-10.1); CARBON DIOXIDE LEVEL 26.0 MMOL/L (20-31); CHLORIDE LEVEL 101.0 MMOL/L (98-107); CREATININE FOR GFR 1.31 MG/DL (0.70-1.30); GLOMERULAR FILTRATION RATE 68.0 (>60); POTASSIUM SERUM 4.3 MMOL/L (3.5-5.1); SODIUM LEVEL 141.0 MMOL/L (136-145)
[2024-12-30] MEDS: ONDANSETRON 4MG 2ML VIAL IV ONE (11:42)
[2024-12-30] MEDS: NS (Normal Saline) 0.9% 1,000 ML IV ONE (11:42)
[2024-12-30] MEDS: MORPHINE 4 MG/ML 1 ML VIAL IV ONE (11:42)
[2024-12-30 11:45] VITALS: BP 147/87; O2SAT 96
[2024-12-30] MEDS: HYDROMORPHONE HCL 0.5 MG/0.5 ML SYRINGE IV PRN (12:32)
[2024-12-30 14:24] LABS: KETONE, URINE AUTO RFX TRACE mg/dL (NEGATIVE); LEUKOCYTE ESTERASE UR AUTO RFX NEGATIVE (NEGATIVE); MUCUS, URINE RFX SMALL (NEGATIVE); NITRITE, URINE AUTO RFX NEGATIVE (NEGATIVE); RBC, URINE AUTO RFX TNTC /HPF (0-3); SQUAM EPITHELIAL CELL UR AURFX 0 /HPF (0-6); WBC, URINE AUTO RFX 0 /HPF (0-3)
[2024-12-30] MEDS ORDERED: PERC5TAB12 PO (14:30)
[2024-12-30] MEDS ORDERED: MIRA3350 PO (14:30)
[2024-12-30] MEDS ORDERED: TAMS-18 PO (14:30)
[2024-12-30] MEDS ORDERED: ONDA-282 PO (14:30)
[2024-12-30 14:36] VITALS: TEMP 98.6
== END 2024-12-30 14:55 | disposition home or self-care (01) ==
LOC: M ED 10:18
DX: N20.1 Calculus of ureter (principal); Z86.711 Personal history of pulmonary embolism; Z86.718 Personal history of other venous thrombosis and embolism; G43.909 Migraine, unspecified, not intractable, without status migrainosus; Z79.01 Long term (current) use of anticoagulants; Z79.899 Other long term (current) drug therapy; Z88.6 Allergy status to analgesic agent; Z88.8 Allergy status to other drugs, medicaments and biological substances
CPT/HCPCS: 74176; 80053; 81001; 82248; 83690; 85027; 96361; 96374; 96375; 96376; 99284; J1171; J2405

== ENCOUNTER → 2025-01-07 | Outpatient (CLI) | payer OTHER ==
[~2025-01-07] MED LIST changes: +ONDA-282 PO; +PERC5TAB12 PO; +TAMS-18 PO
[2025-01-07 13:56] LABS: APPEARANCE, URINE CLEAR (CLEAR); BACTERIA, URINE AUTO NEGATIVE (NEGATIVE); BILIRUBIN, URINE AUTO NEGATIVE (NEGATIVE); BLOOD, URINE BLOOD 1+ (NEGATIVE); GLUCOSE, URINE (UA) AUTO NEGATIVE (NEGATIVE); KETONE, URINE AUTO NEGATIVE (NEGATIVE); LEUKOCYTE ESTERASE, URINE AUTO NEGATIVE (NEGATIVE); NITRITE, URINE AUTO NEGATIVE (NEGATIVE); PROTEIN, URINE AUTO NEGATIVE (NEGATIVE); RBC, URINE AUTO 1 /HPF (0-3); SPECIFIC GRAVITY URINE AUTO 1.014 (1.002-1.035); SQUAMOUS EPITHELIAL CELL UR AU 0 /HPF (0-6); UROBILINOGEN, URINE AUTO 0.2 mg/dL (0.0-2.0); WBC, URINE AUTO 1 /HPF (0-3)
== END ==
LOC: M RAD 10:25
PROVIDERS: ATTEND Physician Assistant
DX: Q61.2 Polycystic kidney, adult type (principal); Q44.6 Cystic disease of liver; N20.1 Calculus of ureter; N32.89 Other specified disorders of bladder; R16.1 Splenomegaly, not elsewhere classified; K57.30 Diverticulosis of large intestine without perforation or abscess without bleeding

== ENCOUNTER → 2025-04-12 | Outpatient (CLI) | payer OTHER | LOC: M RAD 13:24 | PROVIDERS: ATTEND Nurse Practitioner Family | DX: Q61.2 Polycystic kidney, adult type (principal) ==